=== PATIENT | female | born 1945 | race Caucasian/White ===

== ENCOUNTER 2022-03-27 08:00 | Outpatient (RCR) | payer MEDICARE, BC, OTHER, SELFPAY ==
--- NOTE | 2022-03-04 13:29 | PTOPEVAL ---
PHYSICAL THERAPY EVALUATION AND PLAN OF CARE 03-04-22 Thank you for referring Suzie Vaughan to [facility] for the diagnosis of dizziness. She is scheduled to be seen for therapy? 0-2 x/week for 5 weeks. Please review, sign, date and return this plan of care CHARLINE. I agree with and certify that the following plan of care is medically necessary. Referring Physician Date Attending Provider: Roxana Azul NP Past Medical History Source of Past Medical History Patient Neurological History Hx Neurological Disorders No Significant History Cardiovascular History Hx Cardiac Surgery Yes: cardiac stents Hx Myocardial Infarction Yes Hx Other Cardiac Disorders Yes: monitoring aortic aneurysm; follow with cardiology Respiratory History Hx Pneumonia Yes Hx Sleep Apnea Yes: CPAP Genitourinary History Hx Kidney Stones Yes Musculoskeletal History Hx Back Pain Yes: receive injections for back pain Hx Orthopedic Surgery Yes: hammer toe surgery R; Endocrine History Hx Endocrine Disorders No Significant History HEENT History Hx HEENT Disorders No Significant History Evaluation Information Diagnosis dizziness Onset December 2021 Prior Level of Function Activity Level (Last 3 Months) Occupation retired Home Setting Home Type House,Multiple Levels Comments Additional Prior Level of Function recently moved to the area; Comments decreased activity due to R foot surgery and less walking joined fitness center to do aquatic exercises; have basement, but can only go down there 2-3 times a day due to being so weak; indep with cooking, cleaning, home tasks and driving; Pain Assessment Timing of Pain Assessment Pain Scale Pain Scale Used Numeric (1 - 10) Self Report Pain Assessment Bilateral Back Reported Pain Level 5 Pain Frequency Chronic Other Pain Description chronic back pain Pain Score Pain Score 5: Self Report Interventions Used Interventions Used By Clinicians Education Gait Assessment Gait Assessment Ambulation Assistive Devices None Ambulation Distance 150 Query Text:(Feet) Ambulation Destination In Corridor Ambulation Ability Independent Additional Ambulation Comments no abnormalities noted with walking into the treatment
--- NOTE | 2022-03-20 10:08 | PCPTNOTE ---
Patient called & cancelled scheduled appointment this date due to not being able drive because of increased dizziness & memory loss, even had to have her daughter pick her up from the Dr's appt yesterday
--- NOTE | 2022-03-27 08:36 | PTOPEVAL ---
PHYSICAL THERAPY DISCHARGE REPORT 03-27-22 Refer to the clinical summary below; the goals were achieved, therefore PT will be discharged at this time. Thank you for referring Suzie Vaughan to [facility].? Please review, sign, date and return this Discharge report CHARLINE. I agree with and certify that the following plan of care is medically necessary. Referring Physician Date Attending Provider: Roxana Azul NP Subjective Information Marisol reports: have not had Query Text:As Reported By Patient/ any dizziness for about one Family week; have completed my antibiotics and feeling much better; no problems with mobility; going for an eye exam next week- has been a long time since eyes were checked; am using CPAP every night when sleeping; have not found her hearing aides yet-- is in one of her moving boxes she has not yet opened; doing well, do not need anymore therapy; Pain Assessment Timing of Pain Assessment Timing of Pain Assessment Assessment Self Report Self Report Pain Level 0 Vestibular Testing Smooth Pursuits Normal Saccades WNL Gaze Stabilization with Fixation WNL Mikel-Hallpike Left WNL Mikel-Hallpike Right WNL Vestibular Testing Comments -standing 360' turn to R and L 1x; -burr picker item up off floor - walking 50' with head turns R/L and up/down 4x each - supine/sit/stand transfer All performed without any vestibular s/s or balance issues; education; discussed vertigo and causes: BPPV, infection/ UTI, hearing and vision issues ; reinforced doing vestibular eye tracking PRN for her vestibular symptoms; continue with safety and hold positions when moving, to assure not dizzy and safe to move; increase awareness of any changes and notify dr if she has any symptoms again of dizziness or UTI; Pt voiced understanding of
== END 2022-03-27 14:11 | disposition home or self-care (01) ==
LOC: ANHPT 08:00
PROVIDERS: PCP Family Medicine; Visit Provider Nurse Practitioner Family
DX: R42 Dizziness and giddiness (principal)
CPT/HCPCS: 97112; 97161; 97530

== ENCOUNTER 2022-06-05 12:43 | Emergency (ER) | payer OTHER, SELFPAY ==
[2022-06-05 12:48] VITALS: BP 107/57; PULSE 73; RESP 14; TEMP 36.9; O2SAT 100
--- NOTE | 2022-06-05 13:01 | ED.SKABFB ---
HPI - Skin/Abscess/Foreign Bdy General Chief complaint: Skin/Abscess/Foreign Body Stated complaint: Rash Time Seen by Provider: 06/05/22 13:01 Source: patient Mode of arrival: ambulatory Limitations: no limitations History of Present Illness HPI narrative: 77-year-old female with significant medical history presented with complaint of rash spreading from the left arm to abdomen and the right arm over the last 5 days. Endorses itching, denies pain, fever, nausea or vomiting. She has been applying calamine and Benadryl cream. Denies lip, tongue, throat swelling or itching, difficulty breathing or wheezing. Denies change to lotion, soap, detergent or medications. She works in the yard regularly. Related Data Home Medications Medication Instructions Recorded Confirmed riboflavin (vitamin B2) 100 mg 100 mg PO DAILY 02/28/22 06/05/22 tablet Allergies Allergy/AdvReac Type Severity Reaction Status Date / Time ciprofloxacin [From Cipro] Allergy Unknown Verified 06/05/22 13:02 pregabalin [From Lyrica] Allergy Unknown Verified 06/05/22 13:02 oxycodone AdvReac Severe Vomiting Verified 06/05/22 13:02 Review of Systems Review of Systems: CONSTITUTIONAL: Denies body aches, fever, chills, or sweats. EYES: Denies visual changes, redness, or discharge. ENT: Denies rhinorrhea, congestion CARDIOVASCULAR: Denies chest pain, palpitations, or edema. RESPIRATORY: Denies cough or dyspnea. GASTROINTESTINAL: Denies abdominal pain, nausea, vomiting, or diarrhea. SKIN: reports rash and itching MUSCULOSKELETAL: Denies joint pain, or myalgia. NEUROLOGIC: Denies numbness, tingling, or weakness. [facility] Past Medical History Medical History (HFpEF) heart failure with preserved ejection fraction Anxiety Ascending aortic aneurysm Atrial fibrillation Atrophy of vagina CAD (coronary atherosclerotic disease) Chronic SI joint pain Degeneration of cervicothoracic intervertebral disc Degeneration of lumbar intervertebral disc Depressive disorder GERD (gastroesophageal reflux disease) Gout Heart attack Hyperlipidemia Kidney stones Lumbar facet arthropathy Lymphedema of both lower extremities Menopausal and postmenopausal disorder Mixed hyperlipidemia Moderate mitral regurgitation TEDDY on CPAP Osteoarthritis Osteoporosis PAF (paroxysmal atrial fibrillation) PHT (pulmonary hypertension) Prolonged QT interval Pulmonary nodule Sacral pain Skin cancer Superior mesenteric artery atherosclerosis Urinary incontinence Varicose veins of both lower extremities with complications Surgical History Surgical History History of surgery on right wrist S/P hammer toe correction Family History Family History Mother Diabetes mellitus Hypertension Depression Heart disease Sibling Alcohol abuse Skin cancer Heart disease Cerebrovascular accident Social History Social History Social History: Pt moved from [place] to [place] 2021. Pt is , lives alone. Smoking status: Former smoker Alcohol intake: current Alcohol use details: occasionnally Substance use: never Substance use type: does not use Gender identity (if verbalized by the patient): Female Sexual Orientation (if Verbalized by the Patient): Straight or Heterosexual Agree to blood products: Yes Comments At time of signature, I have reviewed and agree with nursing past medical, surgical, social and family history unless otherwise noted. Please see nursing chart for further information. There is no relevant family history pertinent to the presenting complaint Exam Narrative: GENERAL: Well-appearing EYES: conjunctivae clear, and EOMI. ENT: Mucous membranes moist. Oropharynx without edema, erythema or lesions. CHEST: Cl
== END 2022-06-05 13:11 | disposition home or self-care (01) ==
PROVIDERS: Emergency Provider Nurse Practitioner Family; PCP Nurse Practitioner Family
DX: L25.9 Unspecified contact dermatitis, unspecified cause (principal); L03.114 Cellulitis of left upper limb; Z87.891 Personal history of nicotine dependence; K21.9 Gastro-esophageal reflux disease without esophagitis; M10.9 Gout, unspecified; E78.2 Mixed hyperlipidemia; I25.10 Atherosclerotic heart disease of native coronary artery without angina pectoris; G47.33 Obstructive sleep apnea (adult) (pediatric); I48.0 Paroxysmal atrial fibrillation; Z85.828 Personal history of other malignant neoplasm of skin; I27.20 Pulmonary hypertension, unspecified; I50.9 Heart failure, unspecified
CPT/HCPCS: 99213; G0463

== ENCOUNTER 2022-09-19 08:26 | Outpatient (CLI) | payer OTHER, SELFPAY ==
--- NOTE | 2022-10-22 00:38 | WPDSLEEPSTUD ---
Sleep Study Date of Study: 09/19/22 Ordering Provider: Roxana Azul NP Interpreting Physician: Janet Castaneda DO Sleep Study Type: Split Polysomnogram Height: 1.63 m Weight: 71.668 kg Body Mass Index: 27.1 Neck Circumference (inches): 15 [place]: 7 Reason for Sleep Study Previously diagnosed TEDDY. CPAP machine stopped working in early 2021. Never got new CPAP. Sleep History The patient is a 77-year-old female with hypertension, hyperlipidemia, coronary artery disease, history of myocardial infarction, cardiac stents x2, heart failure, paroxysmal atrial fibrillation, anxiety, depression, GERD, lower extremity lymphedema, osteoporosis, pulmonary hypertension, AAA and previously diagnosed TEDDY that had a sleep study ordered by her primary care to requalify for CPAP. the patient constantly snores loud enough that others complain. She occasionally has trouble sleeping when she has a cold. She occasionally wakes up gasping for air throughout the night. She occasionally has breathing problems at night observed by herself or others. She rarely sweats excessively at night. She rarely has heart palpitations or irregular heartbeats during the night. She occasionally falls asleep during the day but never while driving. He rarely experiences loss of muscle tone when extremely emotional. She occasionally has trouble at school or work due to sleepiness. She denies feeling unable to move while waking up or falling asleep. She constantly experiences vivid dreamlike scenes upon awakening or falling asleep. She denies feeling afraid of going to sleep. She rarely has nightmares. She frequently remembers her dreams. She constantly has thoughts racing through her mind. She occasionally feels sad or depressed. She frequently has anxiety. He rarely has muscular tension. She rarely notices parts of her body jerk. She occasionally kicks during the night. She frequently has crawling and aching feelings in her legs and frequently has leg pain during the night. She frequently grinds her teeth during sleep and frequently awakens with morning jaw pain. She is frequently bothered by pain during the day and occasionally awakened by pain during the night. She frequently wakes up feeling stiff in the morning. She frequently wakes up with sore or achy muscles. She frequently wakes up with pain in the neck, spine or other joints. She goes to bed at 8:30 p.m. on weekdays and at 9:00 p.m. on the weekends. He is able to fall asleep quickly. She wakes up throughout the night to urinate. She wakes up between 2:23 a.m. on both weekdays and weekends. She typically gets 7-8 hours of sleep per night. She will stay in bed for 15-30 minutes after waking up in the morning. She currently lives alone. She does not consume any caffeinated beverages within 2 hours of bedtime. She does not engage in physical exercise before bedtime. She denies reading and watching television before falling asleep. She denies taking naps in the afternoon or the evening. She drinks 1-2 caffeinated beverages per day. She rarely consumes alcohol. She denies tobacco and recreational drug use. [facility] Past Medical History Medical History (HFpEF) heart failure with preserved ejection fraction Anxiety Ascending aortic aneurysm Atrial fibrillation Atrophy of vagina CAD (coronary atherosclerotic disease) Chronic SI joint pain Degeneration of cervicothoracic intervertebral disc Degeneration of lumbar intervertebral disc Depressive disorder GERD (gastroesophageal reflux disease) Gout Heart attack Hyperlipidemia Kidney stones Lumbar facet arthropathy Lymphedema of both lower extremities Menopausal and postmenopausal disorder Mixed hyperlipidemia Moderate mitral regurgitation TEDDY on CPAP Osteoarthritis Osteoporosis PAF (paroxysmal atrial fibrillation) PHT (pulmonary hypertension) Prolonged QT interval Pulmonary nodule Sacral
[2022-10-22 00:52] VITALS: BMI 27.1
== END 2022-09-20 06:29 | disposition home or self-care (01) ==
LOC: ANHCSM 08:29
PROVIDERS: PCP Nurse Practitioner Family; Visit Provider Nurse Practitioner Family
DX: G47.33 Obstructive sleep apnea (adult) (pediatric) (principal); Z87.891 Personal history of nicotine dependence; I48.91 Unspecified atrial fibrillation; I25.10 Atherosclerotic heart disease of native coronary artery without angina pectoris; E78.5 Hyperlipidemia, unspecified; K21.9 Gastro-esophageal reflux disease without esophagitis
CPT/HCPCS: 95811

== ENCOUNTER → 2023-03-26 12:22 | Outpatient (CLI) | payer OTHER, SELFPAY ==
--- NOTE | ~2023-03-26 | XR_ITS ---
Lumbosacral Spine: AP and lateral views Clinical History: Pain Findings: The normal lordotic curve is maintained. No fracture or subluxation identified. There is mo derate degenerative disc narrowing throughout the lumbar spine. There is moderate to advanced facet a rthropathy throughout the lumbar spine. The sacroiliac joints are normally outlined. Impression: Moderate degenerative spondylosis, as above. No fracture or subluxation evident. Reviewed, dictated and finalized at location . Impression: Moderate degenerative spondylosis, as above. No fracture or subluxation evident.
== END ==
PROVIDERS: PCP Nurse Practitioner Family; Visit Provider Nurse Practitioner Family
DX: M47.896 Other spondylosis, lumbar region (principal)
CPT/HCPCS: 72100

== ENCOUNTER 2023-06-02 09:51 | Outpatient (CLI) | payer OTHER, SELFPAY ==
--- NOTE | ~2023-06-02 | XR_ITS ---
EXAMINATION: XR abdomen/kub 1V INDICATION: Bilateral kidney stones TECHNIQUE: Supine views of the abdomen were obtained on 2 radiographs. COMPARISON: 03/26/2023 FINDINGS: There are two stable 8 mm stones of the right kidney. No left-sided urolithiasis is identif ied. There are bilateral tubal ligation clips of the pelvis. A moderate volume of colonic stool is pr esent. The visualized lung bases are clear. Bilateral breast implants are noted. There is mild osteoa rthritis of the hips. IMPRESSION: 1. Right nephrolithiasis. Reviewed, dictated and finalized at location A. IMPRESSION: 1. Right nephrolithiasis.
== END 2023-06-02 09:52 | disposition home or self-care (01) ==
LOC: ANHIMG 09:54
PROVIDERS: PCP Family Medicine; Visit Provider Urology
DX: N20.0 Calculus of kidney (principal)
CPT/HCPCS: 74018

== ENCOUNTER 2023-07-18 10:04 | Emergency (ER) | payer OTHER, SELFPAY ==
--- NOTE | ~2023-07-18 | XR_ITS ---
AP, oblique, and lateral views of the left fourth toe CLINICAL HISTORY: Injury FINDINGS: No fracture or dislocation identified. There are minimal degenerative changes of the interp halangeal joints in the visualized toes. Soft tissues are unremarkable. IMPRESSION: No fracture or dislocation seen. Reviewed, dictated and finalized at [facility].
[2023-07-18 10:11] VITALS: BP 130/82; PULSE 65; RESP 14; TEMP 36.4; O2SAT 96
--- NOTE | 2023-07-18 10:24 | ED.LOWEXIN ---
HPI - Extremity Injury (Lower) General Chief Complaint: Extremity Injury, Lower Stated Complaint: Fall Injury/ To Injury on Left Foot Source: patient and RN notes reviewed History of Present Illness HPI Narrative: 78 yo F presents to urgent care with complaints of left toe pain. Pt states she tripped on something 2 days ago while going down the stairs. pt states something went between her left 4th and 3rd toes, causing her to trip. Pt reports left 4th toe pain and left lateral ankle swelling. States she landed on her buttocks. Denies any head injury, neck pain, LOC, chest pain, SOB, vomiting, numbness, or tingling. Pt has not done anything for her toe pain at home. Related Data Home Medications Medication Instructions Recorded Confirmed apixaban 5 mg tablet (Eliquis) 5 mg PO BID 11/19/22 06/17/23 Aspirin [facility] 06/17/23 06/17/23 Cranberry [facility] 06/17/23 06/17/23 albuterol sulfate 90 mcg/actuation 2 inh inhalation QID 06/17/23 06/17/23 breath activated powder inhaler potassium [facility] 06/17/23 06/17/23 Allergies Allergy/AdvReac Type Severity Reaction Status Date / Time ciprofloxacin [From Cipro] Allergy Unknown Verified 07/18/23 10:08 pregabalin [From Lyrica] Allergy Unknown Verified 07/18/23 10:08 oxycodone AdvReac Severe Vomiting Verified 07/18/23 10:08 Review of Systems Review of Systems: CONSTITUTIONAL: Denies fever, chills, or sweats. EYES: Denies visual changes, redness, or discharge. ENT: Denies otalgia and sore throat CARDIOVASCULAR: Denies chest pain, palpitations, or edema. RESPIRATORY: Denies cough or dyspnea. GASTROINTESTINAL: Denies abdominal pain, nausea, vomiting, or diarrhea. GENITOURINARY: Denies dysuria or hematuria. SKIN: Denies rash or itching. MUSCULOSKELETAL: Left 4th toe pain NEUROLOGIC: Denies headache, numbness, or weakness. Pertinent positives per HPI. [facility] Past Medical History Medical History (HFpEF) heart failure with preserved ejection fraction Anxiety Ascending aortic aneurysm Atrial fibrillation Atrophy of vagina CAD (coronary atherosclerotic disease) Chronic SI joint pain Degeneration of cervicothoracic intervertebral disc Degeneration of lumbar intervertebral disc Depressive disorder GERD (gastroesophageal reflux disease) Gout Heart attack Hyperlipidemia Kidney stones Lumbar facet arthropathy Lymphedema of both lower extremities Menopausal and postmenopausal disorder Mixed hyperlipidemia Moderate mitral regurgitation TEDDY on CPAP Osteoarthritis Osteoporosis PAF (paroxysmal atrial fibrillation) PHT (pulmonary hypertension) Prolonged QT interval Pulmonary nodule Restless leg syndrome Sacral pain Skin cancer Sleep apnea Superior mesenteric artery atherosclerosis Urinary incontinence Varicose veins of both lower extremities with complications Surgical History Surgical History History of surgery on right wrist S/P hammer toe correction Family History Family History (Updated 06/17/23 @ 10:18 by Chely Rader MA) Mother Diabetes mellitus Hypertension Depression Heart disease Sibling Alcohol abuse Skin cancer Heart disease Cerebrovascular accident Asthma Social History Social History Social History: Pt moved from [place] to [place] 2021. Pt is , lives alone. Smoking status: Former smoker Tobacco type: cigarettes Alcohol intake: current Alcohol use details: occasionnally Substance use: never Substance use type: does not use Lack of Transportation: No Lack of Food: Never True Current Housing: I Have Housing Concerned About Future Housing: No Difficulty Paying Gas/Electric Bills: No Difficulty Paying for Meds: No Currently Unemployed: No Education: Trade/Vocational Certificate Difficulty w/ Childcare or Family Care:
--- NOTE | 2023-07-18 10:27 | PC.NURSE ---
PT DECLINED ICE FOR COMFORT
== END 2023-07-18 10:50 | disposition home or self-care (01) ==
PROVIDERS: Emergency Provider Nurse Practitioner Family; PCP Nurse Practitioner Adult Health
DX: S90.122A Contusion of left lesser toe(s) without damage to nail, initial encounter (principal); W19.XXXA Unspecified fall, initial encounter; I48.91 Unspecified atrial fibrillation; K21.9 Gastro-esophageal reflux disease without esophagitis; F41.8 Other specified anxiety disorders; Z87.891 Personal history of nicotine dependence
CPT/HCPCS: 73660; 99213; G0463

== ENCOUNTER 2023-11-11 08:21 | Emergency (ER) | payer OTHER, SELFPAY ==
[2023-11-11 08:33] VITALS: BP 129/81; PULSE 63; RESP 18; TEMP 35.9; O2SAT 100
--- NOTE | 2023-11-11 08:36 | ED.NAVMDI ---
HPI - Nausea/Vomiting/Diarrhea General Chief complaint: Nausea/Vomiting/Diarrhea Stated complaint: Vomiting, Weakness Time Seen by Provider: 11/11/23 08:40 Source: patient and RN notes reviewed Mode of arrival: ambulatory Limitations: no limitations History of Present Illness HPI Narrative: 78-year-old female presents concern for vomiting, diarrhea. She reports generalized weakness. She reports symptoms started when she days ago. She reports mild runny nose, denies sore throat, cough, body aches, chills, sweats. Reports she has not taken her temperature. She reports history of urinary tract infections, however reports she has a device implanted that helps keep her from having urinary frequency,. She denies dysuria, urgency, malodorous urine at this time. Related Data Home Medications Medication Instructions Recorded Confirmed apixaban 5 mg tablet (Eliquis) 5 mg PO BID 11/19/22 09/02/23 [facility] 09/02/23 [facility] 06/17/23 09/02/23 albuterol sulfate 90 mcg/actuation 2 inh inhalation QID 06/17/23 09/02/23 breath activated powder inhaler potassium [facility] 06/17/23 09/02/23 Allergies Allergy/AdvReac Type Severity Reaction Status Date / Time ciprofloxacin [From Cipro] Allergy Unknown Verified 09/02/23 08:15 pregabalin [From Lyrica] Allergy Unknown Verified 09/02/23 08:15 oxycodone AdvReac Severe Vomiting Verified 09/02/23 08:15 Review of Systems Review of Systems: CONSTITUTIONAL: Reports malaise, generalized weakness EYES: Denies visual changes, redness, or discharge. ENT: Reports rhinorrhea. Denies congestion, sinus pain, otalgia and sore throat. CARDIOVASCULAR: Denies chest pain, palpitations, or edema. RESPIRATORY: Reports cough. Denies dyspnea. GASTROINTESTINAL: Denies abdominal pain. Reports nausea, vomiting, diarrhea SKIN: Denies rash or itching. MUSCULOSKELETAL: Denies myalgia. NEUROLOGIC: Denies headache. All systems reviewed & are unremarkable except as noted in HPI and below PMFSH Past Medical History Medical History (Updated 11/11/23 @ 09:01 by Bernadette Townsend NP) (HFpEF) heart failure with preserved ejection fraction Anxiety Ascending aortic aneurysm Atrial fibrillation Atrophy of vagina CAD (coronary atherosclerotic disease) Chronic SI joint pain Degeneration of cervicothoracic intervertebral disc Degeneration of lumbar intervertebral disc Depressive disorder GERD (gastroesophageal reflux disease) Gout Heart attack Hyperlipidemia Kidney stones Lumbar facet arthropathy Lymphedema of both lower extremities Menopausal and postmenopausal disorder Mixed hyperlipidemia Moderate mitral regurgitation TEDDY on CPAP Osteoarthritis Osteoporosis PAF (paroxysmal atrial fibrillation) PHT (pulmonary hypertension) Prolonged QT interval Pulmonary nodule Restless leg syndrome Sacral pain Skin cancer Sleep apnea Superior mesenteric artery atherosclerosis Urinary incontinence Varicose veins of both lower extremities with complications Surgical History Surgical History History of surgery on right wrist S/P hammer toe correction Family History Family History (Updated 06/17/23 @ 10:18 by Chely Rader MA) Mother Diabetes mellitus Hypertension Depression Heart disease Sibling Alcohol abuse Skin cancer Heart disease Cerebrovascular accident Asthma Social History Social History Social History: Pt moved from [place] to [place] 2021. Pt is , lives alone. Smoking status: Former smoker Tobacco type: cigarettes Alcohol intake: current Alcohol use details: occasionnally Substance use: never Substance use type: does not use Lack of Transportation: No Lack of Food: Never True Current Housing: I Have Housing Concerned About Future Housing: No Difficulty Paying Gas/Electric Bills: No Difficulty Paying for Meds
== END 2023-11-11 09:07 | disposition home or self-care (01) ==
PROVIDERS: Emergency Provider Nurse Practitioner; PCP Nurse Practitioner Adult Health
DX: N39.0 Urinary tract infection, site not specified (principal); B96.20 Unspecified Escherichia coli [E. coli] as the cause of diseases classified elsewhere; Z87.891 Personal history of nicotine dependence; K21.9 Gastro-esophageal reflux disease without esophagitis; M10.9 Gout, unspecified; E78.2 Mixed hyperlipidemia; G47.33 Obstructive sleep apnea (adult) (pediatric); M81.0 Age-related osteoporosis without current pathological fracture; I48.0 Paroxysmal atrial fibrillation; G25.81 Restless legs syndrome; Z85.828 Personal history of other malignant neoplasm of skin; I25.10 Atherosclerotic heart disease of native coronary artery without angina pectoris; I25.2 Old myocardial infarction; Z79.01 Long term (current) use of anticoagulants; I11.0 Hypertensive heart disease with heart failure; I50.9 Heart failure, unspecified
CPT/HCPCS: 81003; 87077; 87086; 87186; 99213; G0463

== ENCOUNTER 2023-11-25 06:44 | Outpatient (CLI) | payer OTHER, SELFPAY ==
--- NOTE | ~2023-11-25 | CT_ITS ---
EXAMINATION: CTA abd aorta runoff DATE: 11/25/2023 07:12 INDICATION: Abdominal aortic aneurysm without rupture. TECHNIQUE: Computed tomographic angiography (CTA) of the abdominal, pelvis, and both lower extremitie s was performed with 150 mL Omnipaque-350 intravenous contrast. Automated exposure control and iterat oksana reconstruction technique were employed. The dose-length product was 898.77 mGy-cm. Maximum intens ity projection 3D-reconstructions of the arteries were created by the technologist on a separate work station. COMPARISON: None. FINDINGS: ABDOMINAL AORTA AND ITS BRANCHES: There is calcified atherosclerosis of the aorta and many of the other arteries. There is no signific ant stenosis of celiac axis. There is mild stenosis of superior mesenteric artery. There is no signif icant stenosis of the renal arteries or inferior mesenteric artery. PELVIC VASCULATURE: There is no significant stenosis of the common iliac arteries, external iliac arteries, or internal i liac arteries. RIGHT LOWER EXTREMITY VASCULATURE: There is no significant stenosis of right common femoral artery, profunda femoral artery, superficial femoral artery, popliteal artery, tibioperoneal trunk, peroneal artery, anterior tibial artery, or p osterior tibial artery. There are varices in the calf. LEFT LOWER EXTREMITY VASCULATURE: There is no significant stenosis of left common femoral artery, profunda femoral artery, superficial femoral artery, popliteal artery, tibioperoneal trunk, peroneal artery, anterior tibial artery, or po sterior tibial artery. There are varices in the calf and thigh. ADDITIONAL FINDINGS: The visualized portions of the lung bases demonstrate mild atelectasis. No pleural effusion. Cardiome mona is noted. No pericardial effusion. There is a 5 mm cyst in the liver. The gallbladder, spleen, p ancreas, and adrenal glands are normal. There is a small sliding hiatal hernia. There is cortical thi nning of right kidney. There are cysts in the kidneys measuring up to 2.6 cm on the right. There are 9 mm and 8 mm stones in right kidney. The periuterine veins and left ovarian vein are enlarged, consi stent with pelvic venous insufficiency. There are no dilated loops of bowel. The appendix is normal. There are no pathologically enlarged lymph nodes. There is no free intraperitoneal fluid. There are e lectrodes in right S3 neural foramen. IMPRESSION: 1. No significant arterial occlusive disease. 2. No abdominal aortic aneurysm. Reviewed, dictated and finalized at location A. [employer]
== END 2023-11-25 06:45 | disposition home or self-care (01) ==
PROVIDERS: PCP Nurse Practitioner Adult Health; Visit Provider Internal Medicine Cardiovascular Disease
DX: I71.40 Abdominal aortic aneurysm, without rupture, unspecified (principal)
CPT/HCPCS: 75635; Q9967

== ENCOUNTER 2023-12-09 13:29 | Outpatient (CLI) | payer OTHER, SELFPAY ==
--- NOTE | ~2023-12-09 | XR_ITS ---
EXAMINATION: XR abdomen/kub 1V INDICATION: Bilateral kidney stones TECHNIQUE: Supine views of the abdomen were obtained on 2 radiographs. COMPARISON: 06/02/2023 FINDINGS: There are two stable stones measuring 6 mm in the right kidney. No definite left nephrolith iasis is identified. There are no stones along the expected courses of the ureters. Phleboliths are n oted in the pelvis. The bowel gas pattern is normal. There is moderate osteoarthritis of the hips. A neurostimulator device projects over the right mid abdomen with its lead entering the left pelvis. IMPRESSION: 1. Stable right nephrolithiasis. Reviewed, dictated and finalized at location L. ENTICE PHOTOGRAPHER
== END 2023-12-09 13:30 | disposition home or self-care (01) ==
PROVIDERS: PCP Nurse Practitioner Adult Health; Visit Provider Physician Assistant
DX: N20.0 Calculus of kidney (principal); G89.29 Other chronic pain
CPT/HCPCS: 74018

== ENCOUNTER 2023-12-29 14:35 | Outpatient (CLI) | payer OTHER, SELFPAY ==
--- NOTE | ~2023-12-29 | CT_ITS ---
EXAMINATION: CT abdomen pelvis wo con DATE: 12/29/2023 14:57 INDICATION: Bilateral kidney stones TECHNIQUE: Computed tomography (CT) of the abdomen and pelvis was performed without intravenous contr ast. Automated exposure control and iterative reconstruction technique were employed. Exam dose: 184 .88 mGy-cm total exam DLP. COMPARISON: December 09, 2023 KUB November 25, 2023 CT abdomen aorta runoff FINDINGS: Focal discoid atelectasis or scarring at the base of the lingula and to a greater extent le ft lower lobe. No consolidation at the lung bases. Cardiomegaly. No pericardial or pleural effusion. Small sliding hiatal hernia. Small anterior cyst of the medial segment of the left hepatic lobe. The liver is otherwise unremarkab le. The gallbladder is contracted. No bile duct or pancreatic duct dilatation or pancreatic mass lesi on or calcification. Normal splenic size. Normal morphology of the adrenal glands. Approximately 2.5 cm right renal cyst. Pinpoint nonobstructing lower pole left renal calculus. There are 2 pinpoint nonobstructing mid to upper right renal calculi. 8 mm 9.5 mm nonobstructing lower pole right renal calculi with attenuation of approximately 12 Hounsf ield units. No hydronephrosis. The urinary bladder is unremarkable except for a small amount of intraluminal air. The uterus and adn exal areas are unremarkable. There is atherosclerotic calcification but normal caliber of the abdominal aorta. No intraperitoneal or retroperitoneal or pelvic mass lesion or adenopathy or ascites is noted. No bowel obstruction or intraperitoneal free air. Left S3 electrode, battery pack overlying right gluteal area. No suspicious osteolytic or osteoblastic lesions are noted. Prominent degenerative disc disease and degenerative change at the apophyseal joints in the lower lum bar area. IMPRESSION: Bilateral nephrolithiasis, slight on the left, more prominent on the right No hydroureteronephrosis Approximately 2.5 cm right renal cyst Small sliding hiatal hernia Small hepatic cysts Cardiomegaly Reviewed, dictated and finalized at Location A. Reviewed, dictated and finalized at location B. IMPRESSION: Bilateral nephrolithiasis, slight on the left, more prominent on t he right No hydroureteronephrosis Approximately 2.5 cm right renal cyst Small sliding hiatal hernia Small hepatic cysts Cardiomegaly
--- NOTE | ~2023-12-29 | XR_ITS ---
XR abdomen/kub 1V DATE: 12/29/2023 14:52 INDICATION: Bilateral kidney stones TECHNIQUE: AP view COMPARISON: 12/29/2023 CT abdomen pelvis FINDINGS: 2 prominent lower pole right renal calcified calculi are again noted. A couple of punctate nonobstructing upper pole right renal calculi and pinpoint nonobstructing lower pole left renal calcu morales are better demonstrated on 12/29/2023 CT examination. No visceromegaly is evident. The psoas shadows are intact. There is a prominent of fecal material in the colon but no bowel obstruction is evident. Right sided battery pack with left sacral neurotransmitter lead. IMPRESSION: Nephrolithiasis Reviewed, dictated and finalized at Location A. Reviewed, dictated and finalized at location L. IMPRESSION: Nephrolithiasis
== END 2023-12-29 14:36 | disposition home or self-care (01) ==
LOC: ANHIMG 14:36
PROVIDERS: PCP Nurse Practitioner Adult Health; Visit Provider Physician Assistant
DX: N20.0 Calculus of kidney (principal); I51.7 Cardiomegaly; K44.9 Diaphragmatic hernia without obstruction or gangrene; N28.1 Cyst of kidney, acquired
CPT/HCPCS: 74018; 74176

== ENCOUNTER 2024-04-05 10:53 | Emergency (ER) | payer OTHER, SELFPAY ==
--- NOTE | 2024-04-05 11:07 | ED.GENADULT ---
HPI - General Adult General Chief complaint: Urogenital-Female Stated complaint: Poss UTI Source: patient and RN notes reviewed Mode of arrival: ambulatory Limitations: no limitations History of Present Illness HPI narrative: 79-year-old female history of recurrent UTIs, CAD, CHF, atrial fibrillation, and AAA presented for c/o bladder pressure and increased confusion which she has when she gets a UTI. Onset 5-6 days. Reports possible fever and constipation yesterday. States she often does not know who she is or what day it is, and has had a negative neuro workup. Takes a daily antbiotic for UTI, but is unsure of the name. Follows with Dr Prakash. Has device for 'leaking bladder'. denies hematuria, nausea, vomiting, abdominal pain, flank pain, constipation, diarrhea, fevers or chills. Reports a UTI about 6 weeks ago, for which she was treated by urologist. Related Data Home Medications Medication Instructions Recorded Confirmed apixaban 5 mg tablet (Eliquis) 5 mg PO BID 11/19/22 11/17/23 Aspirin [facility] 06/17/23 11/17/23 Cranberry [facility] 06/17/23 11/17/23 albuterol sulfate 90 mcg/actuation 2 inh inhalation QID 06/17/23 11/17/23 breath activated powder inhaler [facility] 11/17/23 omega 2-ips-ktx-fish oil 1,000 mg 2 cap PO DAILY 11/17/23 11/17/23 (120 mg-180 mg) capsule (Fish Oil) Allergies Allergy/AdvReac Type Severity Reaction Status Date / Time ciprofloxacin [From Cipro] Allergy Unknown Verified 12/01/23 14:17 pregabalin [From Lyrica] Allergy Unknown Verified 12/01/23 14:17 oxycodone AdvReac Severe Vomiting Verified 12/01/23 14:17 Review of Systems Review of Systems: CONSTITUTIONAL: Denies body aches, fever, chills, or sweats. CARDIOVASCULAR: Denies chest pain, palpitations, or edema. RESPIRATORY: Denies cough or dyspnea. GASTROINTESTINAL: Denies abdominal pain, nausea, vomiting, or diarrhea. GENITOURINARY: Reports dysuria, denies frequency, urgency, hematuria, flank pain SKIN: Denies rash, itching, or wounds. MUSCULOSKELETAL: Denies back pain or myalgia. PMFSH Past Medical History Medical History (HFpEF) heart failure with preserved ejection fraction Anxiety Ascending aortic aneurysm Atrial fibrillation Atrophy of vagina CAD (coronary atherosclerotic disease) Chronic SI joint pain Degeneration of cervicothoracic intervertebral disc Degeneration of lumbar intervertebral disc Depressive disorder GERD (gastroesophageal reflux disease) Gout Heart attack Hyperlipidemia Kidney stones Lumbar facet arthropathy Lymphedema of both lower extremities Menopausal and postmenopausal disorder Mixed hyperlipidemia Moderate mitral regurgitation TEDDY on CPAP Osteoarthritis Osteoporosis PAF (paroxysmal atrial fibrillation) PHT (pulmonary hypertension) Prolonged QT interval Pulmonary nodule Restless leg syndrome Sacral pain Skin cancer Sleep apnea Superior mesenteric artery atherosclerosis Urinary incontinence Varicose veins of both lower extremities with complications Surgical History Surgical History History of surgery on right wrist S/P hammer toe correction Family History Family History Mother Diabetes mellitus Hypertension Depression Heart disease Sibling Alcohol abuse Skin cancer Heart disease Cerebrovascular accident Asthma Social History Social History Social History: Pt moved from [place] to [place] 2021. Pt is , lives alone. Smoking status: Former smoker Tobacco type: cigarettes Alcohol intake: current Alcohol use details: occasionnally Substance use: never Substance use type: does not use Do You Feel Safe in your Home?: Yes Lack of Transportation: No Lack of Food: Never True Current Housing: I Have [facility]
[2024-04-05 11:08] VITALS: BP 117/77; PULSE 76; RESP 20; TEMP 36.2; O2SAT 100
== END 2024-04-05 11:41 | disposition home or self-care (01) ==
PROVIDERS: Emergency Provider Nurse Practitioner Family; PCP Nurse Practitioner Adult Health
DX: R30.0 Dysuria (principal); Z87.891 Personal history of nicotine dependence; I25.10 Atherosclerotic heart disease of native coronary artery without angina pectoris; K21.9 Gastro-esophageal reflux disease without esophagitis; M10.9 Gout, unspecified; I25.2 Old myocardial infarction; E78.2 Mixed hyperlipidemia; G47.33 Obstructive sleep apnea (adult) (pediatric); M19.90 Unspecified osteoarthritis, unspecified site; M81.0 Age-related osteoporosis without current pathological fracture; I48.0 Paroxysmal atrial fibrillation; G25.81 Restless legs syndrome; Z85.828 Personal history of other malignant neoplasm of skin; Z79.82 Long term (current) use of aspirin
CPT/HCPCS: 81003; 87086; 87088; 99213; G0463

== ENCOUNTER 2024-06-07 08:06 | Outpatient (CLI) | payer OTHER, SELFPAY ==
[2024-06-07 18:54] LABS: Basophils Absolute Auto 0.1 K/mm3 (0.0-0.1); Basophils Percent Auto 0.7 % (0.2-1.2); Eosinophils Absolute Auto 0.3 K/mm3 (0-0.3); Eosinophils Percent Auto 3.6 % (0-4.4); Hematocrit 44.5 % (37.0-47.0); Hemoglobin 13.7 g/dL (12.0-15.0); Immature Granulocyte Absolute 0.02 K/mm3 (0.00-0.031); Immature Granulocyte Percent A 0.3 % (0-0.5); Lymphocytes Absolute Auto 1.82 K/mm3 (0.9-3.2); Lymphocytes Percent Auto 26.3 % (18.3-44.2); Mean Corpuscular HGB Conc 30.8 g/dl (32-36); Mean Corpuscular Hemoglobin 29.5 pg (26-34); Mean Corpuscular Volume 95.7 fl (80-100); Mean Platelet Volume 10.3 fl (7.4-10.4); Monocytes Absolute Auto 0.7 K/mm3 (0.1-0.6); Monocytes Percent Auto 9.7 % (2.6-8.5); Neutrophils Absolute Auto 4.1 K/mm3 (1.3-6.7); Neutrophils Percent Auto 59.4 % (45.5-73.1); Platelet Count Result 219 k/mm3 (150-375); Red Blood Count 4.65 M/mm3 (4.2-5.4); Red Cell Distribution Width 13.7 % (11.5-14.5); White Blood Count 6.9 K/mm3 (4.5-10.0)
[2024-06-07 19:23] LABS: Alanine Aminotransferase 22 U/L (6-35); Albumin Level 4.5 g/dL (3.5-5.1); Alkaline Phosphatase 71 U/L (38-126); Anion Gap 10 mmol/L (4-12); Aspartate Amino Transferase 56 U/L (14-36); Blood Urea Nitrogen 20 mg/dL (7-17); Calcium 9.6 mg/dL (8.4-10.2); Carbon Dioxide 27 mmol/L (22-30); Chloride 103 mmol/L (98-107); Cholesterol 201 mg/dL (0-200); Estimated Glomerular Filt Rate > 60; Glucose 104 mg/dL (65-110); HDL Direct 43 mg/dL; Sodium 140 mmol/L (137-145); Triglycerides 265 mg/dL (<150)
[2024-06-07 19:34] LABS: LDL Cholesterol Direct 90 mg/dL
== END 2024-06-07 08:07 | disposition home or self-care (01) ==
PROVIDERS: PCP Nurse Practitioner Adult Health; Visit Provider Internal Medicine Cardiovascular Disease
DX: E78.5 Hyperlipidemia, unspecified (principal)
CPT/HCPCS: 36415; 80053; 80061; 84443; 85025

== ENCOUNTER 2024-12-14 07:58 | Outpatient (CLI) | payer MEDICARE, SELFPAY ==
[2024-12-14 18:55] LABS: Alanine Aminotransferase 18 U/L (6-35); Albumin Level 4.3 g/dL (3.5-5.1); Alkaline Phosphatase 61 U/L (38-126); Anion Gap 9 mmol/L (4-12); Aspartate Amino Transferase 50 U/L (14-36); Bilirubin,Total 1.4 mg/dL (0.2-1.3); Blood Urea Nitrogen 17 mg/dL (7-17); Calcium 9.4 mg/dL (8.4-10.2); Carbon Dioxide 26 mmol/L (22-30); Chloride 108 mmol/L (98-107); Cholesterol 199 mg/dL (0-200); Estimated Glomerular Filt Rate > 60; Glucose 92 mg/dL (65-110); HDL Direct 39 mg/dL; Magnesium 2.3 mg/dL (1.6-2.3); Potassium 4.7 mmol/L (3.4-5.0); Sodium 143 mmol/L (137-145); Triglycerides 195 mg/dL (<150)
[2024-12-14 19:06] LABS: LDL Cholesterol Direct 97 mg/dL
[2024-12-14 19:22] LABS: Basophils Absolute Auto 0.1 K/mm3 (0.0-0.1); Basophils Percent Auto 0.9 % (0.2-1.2); Eosinophils Absolute Auto 0.2 K/mm3 (0-0.3); Eosinophils Percent Auto 3.2 % (0-4.4); Hemoglobin 11.9 g/dL (12.0-15.0); Immature Granulocyte Absolute 0.01 K/mm3 (0.00-0.031); Immature Granulocyte Percent A 0.1 % (0-0.5); Lymphocytes Absolute Auto 1.47 K/mm3 (0.9-3.2); Lymphocytes Percent Auto 21.6 % (18.3-44.2); Mean Corpuscular HGB Conc 30.5 g/dl (32-36); Mean Corpuscular Hemoglobin 29.2 pg (26-34); Mean Corpuscular Volume 95.6 fl (80-100); Mean Platelet Volume 10.1 fl (7.4-10.4); Monocytes Absolute Auto 0.7 K/mm3 (0.1-0.6); Monocytes Percent Auto 10.1 % (2.6-8.5); Neutrophils Absolute Auto 4.4 K/mm3 (1.3-6.7); Neutrophils Percent Auto 64.1 % (45.5-73.1); Platelet Count Result 249 k/mm3 (150-375); Red Blood Count 4.08 M/mm3 (4.2-5.4); Red Cell Distribution Width 14.4 % (11.5-14.5); White Blood Count 6.8 K/mm3 (4.5-10.0)
== END 2024-12-14 07:59 | disposition home or self-care (01) ==
LOC: ANHBWCLAB 07:59
PROVIDERS: PCP Nurse Practitioner Adult Health; Visit Provider Nurse Practitioner Adult Health
DX: E78.5 Hyperlipidemia, unspecified (principal); I10 Essential (primary) hypertension
CPT/HCPCS: 36415; 80053; 80061; 83735; 85025

== ENCOUNTER 2025-01-11 07:41 | Outpatient (CLI) | payer MEDICARE, SELFPAY ==
--- OUTSIDE RECORDS SUMMARY | 2025-01-11 07:44 | XMS_ITS | Encounter Summary ---
Author Organization [facility] Address [facility] [place] [address] Care Team Providers Care Automation And Controls Instructor Name Role Phone Barrie Naranjo MD Primary Care Provider [phone] Encounter Details Date Type Department Care Team (Late st Contact Info) Description 09/15/[address] [facility] [id number] Molly Edgar MD [address] [facility] 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 providers found PCP: Barrie Naranjo MD Suzie Vaughan is an 78-year-old female. Reason for Admission: * No active hospital problems. * HPI: History of urge incontinence with successful trial of sacral neuromodulation. Presents for implantation of permanent neurostimulator device Past Medical History: Diagnosis Date AMI (acute myocardial infarction) (CMS/HCC) Arthritis Coronary artery disease Degeneration, intervertebral disc, lumbar GERD (gastroesophageal reflux disease) History of kidney stones TEDDY on CPAP Paroxysmal atrial fibrillation (HHS/HCC) (CMS/HCC) PONV (postoperative nausea and vomiting) RLS (restless legs syndrome) Sensory urge incontinence Skin cancer of face Vertigo Allergies: Allergies Allergen Reactions Ciprofloxacin Vomiting Lyrica [Pregabalin] Vomiting Social History Tobacco Use Smoking status: Former Packs/day: 0.50 Years: 20.00 Additional pack years: 0.00 Total pack years: 10.00 Types: Cigarettes Quit date: 2013 Years since quittin.9 Smokeless tobacco: Never Substance Use Topics Alcohol use: Yes Comment: seldom 1 every 3 mo Past Surgical History: Procedure Laterality Date CARDIAC CATHETERIZATION 2019 11 stents placed FRACTURE SURGERY Right wrist HC IMPLANT BREAST REMOVAL OF FALLOPIAN TUBE REPAIR OF HAMM[place]OE,ONE XA A-FIB ABLATION No family history on file. Travel Exposure: Current Outpatient Medications on File Prior to Visit Medication Sig apixaban (ELIQUIS) 5 MG tablet Take 1 tablet (5 mg total) by mouth 2 (two) times daily. aspirin 81 MG chewable tablet Chew 1 tablet (81 mg total) by mouth daily. Evolocumab (REPATHA SC) Inject 1 mg into the skin once a week. ezetimibe (ZETIA) 10 MG tablet Take 1 tablet (10 mg total) by mouth daily. Multiple Vitamin (MULTIVITAMIN ADULT OR) Take 1 tablet by mouth daily. Potassium 99 MG tablet Take 1 tablet by mouth daily. rosuvastatin (CRESTOR) 40 MG tablet Take 1 tablet (40 mg total) by mouth nightly at bedtime. sertraline (ZOLOFT) 100 MG tablet Take 1.5 tablets (150 mg total) by mouth daily. No current facility-administered medications on file prior to visit. There were no vitals taken for this visit. ROS negative Physical Exam No acute distress Normal breathing Alert and orient x3 Assessment: Urge incontinence Plan: Planned for placement of sacral neurostimulator. Understands risks of bleeding, infection, lack of efficacy, need for revision and battery changes. Agrees to proceed. OMLLY EDGAR MD 09/15/2023 ER APPRENTICE COMBINATION documented in this encounter Plan of Treatment Not on file documented as of this encounter Visit Diagnoses Not on filedocumented in this encounter Care Teams Automation And Controls Instructor Relationship Specialty Start Date End Date Barrie Naranjo MD [address] [place] [address] PCP - General FAMILY PRACTICE 09/11/23 documented as of this encounter
--- OUTSIDE RECORDS SUMMARY | 2025-01-11 07:45 | XMS_ITS | Referral Summary ---
Author Organization [address] lto Address [address] [place] [address] Care Team Providers Care Undergraduate Internship Name Role Phone Barrie Naranjo MD Primary Care Provider [phone] Encounters Date Type Department Care Team Description 12/29/2024 Orders Only [facility] V[facility] Vein Surgery [address] [place] [address] [place] [phone] Renyaldo Whitaker MD 12/29/2024 9:00 AM CDT Office Visit [facility] Vascular at [address] [place] [phone] Erik Whitaker MD Varicose veins of leg with pain, right (Primary Dx) 12/28/2024 Documentation [facility] Vascular and Vein Surgery [address] [place] [address] [place] [phone] Irma Green MA 12/27/2024 Documentation [facility] V[facility] Vein Surgery [address] [place] [address] [place] [phone] Irma Green MA 12/03/2024 6:28 PM [facility]I [facility]IMMER - 12/04/2024 12:13 AM [facility] Emergency [facility] Emergency Department [address] [place] [address] James Harris MD Wala, Rakesh Aggarwal MD Head injury, initial encounter (Primary Dx); Fall, initial encounter Discharge Disposition: Discharge to home or self care 12/03/2024 1:18 PM [facility]I [facility] TRIMMER - 12/03/2024 11:59 PM [facility] Hospital Encounter [facility] Emergency, Room R Discharge Disposition: Discharge to home or self care 12/03/2024 10:53 AM [facility]I [facility] TRIMMER - 12/03/2024 11:59 PM [facility] Hospital Encounter [facility] Medical Office Building 2 Vascular [address] [facility] [address] [place] [address] Varicose veins of leg with pain, right Discharge Disposition: Discharge to home or self care 11/30/2024 Telephone [facility] Ve[facility] Surgery [address] [facility] [address] [place] [address] Kallie Schwab, RN 11/29/2024 Orders Only [facility] at [address] [place] [address] Erik Whitaker MD 11/26/2024 Telephone [facility] [address] [facility] [address] [place] [address] Augustin Alvarez MD 11/26/2024 Telephone [facility] Vascular and Vein Surgery [facility] [facility] [address] [place] [address] Kallie Schwab, RN from Last 3 Months Allergies Active Allergy Reactions Criticality Noted Date Comments Ciprofloxacin Hallucinations Medium 03/08/2022 Pregabalin Hallucinations Medium 03/08/2022 Medications metoprolol hoang-hydrochlorot hiaz 100-12.5 mg tablet extended release 24 hr Take by mouth Ac tive apixaban (ELIQUIS) 2.5 mg tablet 1 tablet (2.5 mg total) Active sertraline (ZOLOFT) 100 mg tablet Take 1 tablet (100 mg total) by mouth daily Active aspirin 81 mg chewable tablet Take 1 tablet (81 mg total) by mouth daily Active omega-3 fatty acids-fish oil 300-1,000 mg capsule Take 2 capsules (2 g total) by mouth daily Active meclizine (ANTIVERT) 25 mg tablet Take 1 tablet (25 mg total) by mouth 3 (three) times a day as needed for dizziness Active trimethoprim (TRIMPEX) 100 mg tablet Take 1 tablet (100 mg total) by mouth nightly 4 Active ALPRAZolam (XANAX) 0.5 mg tablet Bring both tablets to [address] day of procedure. 2 tablet 5 Active Additional Information Patient not taking.Reported on 12/29/2024 Active Problems Problem Noted Date Diagnosed Date Varicose veins of leg with pain, right 5 Assessment & Plan (12/31/2024 7:28 AM CDT): Status post right lower extremity stab phlebectomies, continue p.r.n. compression therapy. Overall I do not think there would be much benefit from performing left lower extremity stab phlebectomies. Can follow up me as needed. Varicose veins of bilateral lower extremities wi th pain 07/07/2024 Assessment & Plan (08/13/2024 10:36 AM CDT): Risks benefits alternatives to stab phlebectomies discussed, risks including bleeding, infection, need for further surgery. She wished proceed. Assessment & Plan (07/07/2024 1:07 PM CDT): Symptomatic bulky varicosities to the bilateral medial legs. Continue compression therapy and follow up in the next few weeks with a venous reflux. Social History Tobacco Use Types Packs/Day Years Used Date Smoking Tobacco: Former Cigarettes Q uit: 2013 Smokeless Tobacco: Never Tobacco Cessation:Counseling Given: Not Answered Personal Safety Answer Date Recorded Have you ever been in or are you currently in a harmful physical or emotional relationship or is someone making you feel afraid or unsafe? Denies 03/03/2023 Comments No Sex and Gender Information Value Date Recorded Sex Assigned at Not on file Legal Sex Female 4:25 PM CDT Gender Identity Not on file Sexual Orientation Not on file Last Filed Vital Signs Vital Sign Reading Time Taken Comments Blood Pressure 147/81 12/29/2024 9:21 AM CDT Pulse 68 12/29/2024 9:21 AM CDT Temperature 36.3 C (97.4 F) 12/03/2024 11:40 PM SKI [facility] TRIMMER Respiratory Rate 14 12/03/2024 11:45 PM [facility]I [facility] TRIMMER Oxygen Saturation 97% 12/29/2024 9:21 AM CDT Inhaled Oxygen Concentration - - Weight 70.3 kg (155 lb) 12/29/2024 9:21 AM CDT Height 162.6 cm (5' 4 ) 12/29/2024 9:21 AM CDT Body Mass Index 26.61 12/29/2024 9:21 AM CDT Plan of Treatment Not on file Procedures Procedure Name Priority Date/Time Associated Diagnosis Comments XR HAND RIGHT 3 OR MORE VIEWS ED 12/03/2024 8:[address] LUMBAR SPINE WO CONTRAST ED 12/03/2024 7:[address] FACIAL BONES WO CONTRAST ED 12/03/2024 7:[address] CERVICAL SPINE WO CONTRAST ED 12/03/2024 7:[address] HEAD WO CONTRAST ED 12/03/2024 7 :42 PM SKI TOP TRIMMER EGFR STAT 12/03/2024 6:57 PM [facility]I [facility] TRIMMER DIFFERENTIAL AUTO STAT 12/03/2024 6:5 7 PM [facility]I [facility] TR[facility]MER CBC WITH AUTO DIFFERENTIAL STAT 12/03/2024 6:57 PM [facility]I [facility] TR[facility]MER COMPREHENSIVE METABOLIC PANEL STAT 12/03/2024 6:57 PM SKI TOP TRIMMER ECG 12-LEAD STAT 12/03/2024 6:33 PM SKI TOP TRIMMER from Last 3 Months Results * XR Hand Right 3 or More Views (12/03/2024 8:10 PM SKI TOP TRIMMER) Anatomical Region Laterality Modality Upper Extremities, Hand Right Computed Radiography 12/03/2024 8:28 PM SKI TOP TRIMMER Narrative 12/03/2024 8:29 PM SKI TOP TRIMMER EXAM DESCRIPTION: XR HAND RIGHT 3 OR MORE VIEWS REASON FOR STUDY: pain Pt had a varicose vein surgery today and slipped and fell walking into her house. Pt laid on the ground outside for approximately two hours before she was found and EMS was called. Pt has large amounts of bruising and bleeding to the L side of her face. All over Right Hand Pain. TECHNIQUE: 3 radiographic view(s) of the right hand . COMPARISON: None FINDINGS: BONES/JOINTS: There is no acute fracture, malalignment or osseous abnormality. Severe osteoarthritis of the right hand. SOFT TISSUES: Within normal limits. IMPRESSION: No acute osseous abnormality. THIS IS AN ELECTRONICALLY VERIFIED FINAL REPORT 12/03/2024 8:29 PM - Electronically signed by Elsy Gilliam M.D. FT: FT Report ID: [id number] Reading Location: [id number] Procedure Note Elsy Gagnon MD - 12/03/2024 EXAM DESCRIPTION: XR HAND RIGHT 3 OR MORE VIEWS REASON FOR STUDY: pain Pt had a varicose vein surgery today and slipped and fell walking into her house. Pt laid on the ground outside for approximately two hours beforeshe was found and EMS was called. Pt has large amounts of bruising andbleeding to the L side of her face. All over Right Hand Pain. TECHNIQUE: 3 radiographic view(s) of the right hand . COMPARISON: None FINDINGS: BONES/JOINTS: There is no acute fracture, malalignment or osseousabnormality. Severe osteoarthritis of the right hand. SOFT TISSUES: Within normal limits. IMPRESSION: No acute osseous abnormality. THIS IS AN ELECTRONICALLY VERIFIED FINAL REPORT 12/03/2024 8:29 PM - Electronically signed by Elsy Gilliam M.D. FT: FT Report ID: [id number] Reading Location: [id number] James Harris MD IMG XR PROCEDURES Final Resu lt * CT Lumbar Spine WO Contrast (12/03/2024 7:42 PM SKI TOP TRIMMER) Anatomical Region Laterality Modality Spine N/A Computed Tomogra phy 12/03/2024 7:55 PM SKI TOP TRIMMER Narrative 12/03/2024 7:59 PM SKI TOP TRIMMER EXAM DESCRIPTION: CT LUMBAR SPINE WO CONTRAST REASON FOR STUDY: Low back pain, trauma Patient fell after coming home from varicose vein procedure on leg. Patient struck face. Patient in c-collar. TECHNIQUE: Axial images acquired through the lumbar spine without intravenous contrast. Reconstructed coronal and sagittal MPR images reviewed. All images stored on PACS. Automated exposure control was used as a dose optimization technique for this examination. COMPARISON: None FINDINGS: SEGMENTATION: No transitional anatomy. The lowest well-developed disc space is labeled L5-S1. ALIGNMENT: Normal. VERTEBRAE: No fracture. Vertebral heights well-maintained. DISC HEIGHT: Moderate disc space narrowing at L4-5. There is vacuum disc phenomenon at L4-5 and L5-S1. Marginal osteophytes are seen throughout the lumbar spine and there is degenerative change involving the articular facets. The bones are osteopenic. HARDWARE: None in the spine. INDIVIDUAL DISC LEVELS: At L2-3 through L5-S1, there are minimal diffusely bulging disc resulting in only mild narrowing of the central canal. VISUALIZED RIBS: No fractures. SOFT TISSUES: Nonobstructing stones and cortical scarring in the visualized right kidney. Small hiatal hernia. Atherosclerotic calcification of the abdominal aorta. OTHER: No other significant finding. IMPRESSION: Multilevel degenerative change in the lumbar spine. No CT evidence of lumbar spine fracture. THIS IS AN ELECTRONICALLY VERIFIED FINAL REPORT 12/03/2024 7:59 PM - Electronically signed by Juaquin Dorantes M.D. KT: KT Report ID: [id number] Reading Location: [id number] Procedure Note Juaquin Dorantes MD - 12/03/2024 EXAM DESCRIPTION: CT LUMBAR SPINE WO CONTRAST REASON FOR STUDY: Low back pain, trauma Patient fell after coming home from varicose vein procedure on leg.Patient struck face. Patient in c-collar. TECHNIQUE: Axial images acquired through the lumbar spine withoutintravenous contrast. Reconstructed coronal and sagittal MPR images reviewed. Allimages stored on PACS. Automated exposure control was used as a dose optimization technique forthis examination. COMPARISON: None FINDINGS: SEGMENTATION: No transitional anatomy. The lowest well-developed discspace is labeled L5-S1. ALIGNMENT: Normal. VERTEBRAE: No fracture. Vertebral heights well-maintained. DISC HEIGHT: Moderate disc space narrowing at L4-5. There is vacuumdisc phenomenon at L4-5 and L5-S1. Marginal osteophytes are seen throughoutthe lumbar spine and there is degenerative change involving the articularfacets. The bones are osteopenic. HARDWARE: None in the spine. INDIVIDUAL DISC LEVELS: At L2-3 through L5-S1, there are minimaldiffusely bulging disc resulting in only mild narrowing of the central canal. VISUALIZED RIBS: No fractures. SOFT TISSUES: Nonobstructing stones and cortical scarring in thevisualized right kidney. Small hiatal hernia. Atherosclerotic calcification of the abdominal aorta. OTHER: No other significant finding. IMPRESSION: Multilevel degenerative change in the lumbar spine. No CT evidence oflumbar spine fracture. THIS IS AN ELECTRONICALLY VERIFIED FINAL REPORT 12/03/2024 7:59 PM - Electronically signed by Juaquin Dorantes M.D. KT: KT Report ID: [id number] Reading Location: [place] [id number] James Harris MD IMG CT PROCEDURES Final Resu lt * CT Cervical Spine WO Contrast (12/03/2024 7:42 PM SKI TOP TRIMMER) Anatomical Region Laterality Modality Spine N/A Computed Tomogra phy 12/03/2024 7:53 PM SKI TOP TRIMMER Narrative 12/03/2024 8:15 PM SKI TOP TRIMMER EXAM DESCRIPTION: CT HEAD WO CONTRAST; CT CERVICAL SPINE WO CONTRAST; CT FACIAL BONES WO CONTRAST REASON FOR STUDY: Head trauma, moderate-severe Patient fell after coming home from varicose vein procedure on leg. Patient struck face. Patient in c-collar. ; Neck trauma (Age >= 65y) Patient fell after coming home from varicose vein procedure on leg. Patient struck face. Patient in c-collar. ; Facial trauma, blunt Patient fell after coming home from varicose vein procedure on leg. Patient struck face. Patient in c-collar. TECHNIQUE: Axial images acquired through the brain without intravenous contrast. Images stored on PACS. Automated exposure control was used as a dose optimization technique for this examination. Axial images acquired through the cervical spine without intravenous contrast. Images stored on PACS. Automated exposure control was used as a dose optimization technique for this examination. Axial images acquired through the maxillofacial bones without intravenous contrast. Images stored on PACS. Automated exposure control was used as a dose optimization technique for this examination. COMPARISON: None available FINDINGS: Head: BRAIN: No hemorrhage, edema or mass effect. No recent infarct. Nonspecific periventricular and subcortical white matter hypoattenuation which can be seen as sequela of chronic vessel ischemic disease. There is age-appropriate cerebral and cerebellar volume loss with ex vacuo dilatation of the ventricular system. No acute intraventricular hemorrhage. Basal cisterns are patent. No midline shift. EXTRA-AXIAL SPACES: No fluid collections. No masses. CALVARIUM: No fracture. SINUSES/MASTOIDS: Mucosal thickening of the entire paranasal sinuses due to chronic sinusitis. There is opacification of few right mastoid air cells. ORBITS: No significant abnormality. OTHER: There are left frontal scalp/left forehead, left preseptal as well as left Radha maxillary facial subcutaneous contusions and hematomas with the largest discrete hematoma in the left supraorbital region measures up to 2 cm with an adjacent locule of soft tissue gas likely due to laceration. Cervical spine: There is mild dextrocurvature of the cervical spine, 2 mm anterolisthesis of C4 on C5, 1 mm retrolisthesis of C5 on C6 and C6 on C7. The cervical spine alignment is otherwise within normal limits. Vertebral body heights are normal. There is no acute fracture. Multilevel cervical spine degenerative disc disease which is most pronounced and severe at C5-C6 and C6-C7. Ydtk-jf-bnaldplo multilevel facet and uncovertebral joint osteoarthritis with swul-ul-qrtpmlnm multilevel osseous neural foraminal stenosis. No acute osseous abnormality in the imaged upper thoracic spine. No aggressive bone lesions. Mild osteopenia. Neck soft tissues demonstrate no acute abnormality. No cervical mass or cervical lymphadenopathy. Lung apices demonstrate biapical pleuroparenchymal scarring. Maxillofacial bones: No acute fractures or aggressive bone lesions. Mucosal thickening of the entire paranasal sinuses due to chronic sinusitis. There is occlusion of the left ostiomeatal unit. Right ostiomeatal unit is patent. There is opacification of few right mastoid air cells. Left mastoid air cells are clear. The IAC's are normal and symmetric. The orbits and globes are unremarkable. The maxilla is edentulous with several absent mandibular teeth with associated chronic alveolar ridge resorption. 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 The nasal septum is deviated to the right. The nasal turbinates are within normal limits. There are left frontal scalp/left forehead, left preseptal as well as left Radha maxillary facial subcutaneous contusions and hematomas with the largest discrete hematoma in the left supraorbital region measures up to 2 cm with an adjacent locule of soft tissue gas likely due to laceration. IMPRESSION: 1. No acute intracranial findings. 2. No CT evidence of acute traumatic injury to cervical spine. 3. No acute maxillofacial fractures. 4. Lleft frontal scalp/left forehead, left preseptal as well as left Radha maxillary facial subcutaneous contusions and hematomas with the largest discrete hematoma in the left supraorbital region measures up to 2 cm with an adjacent locule of soft tissue gas likely due to laceration. THIS IS AN ELECTRONICALLY VERIFIED FINAL REPORT 12/03/2024 8:15 PM - Electronically signed by Antonio Sandy M.D. AT: AT Report ID: [id number] Reading Location: [id number] Procedure Note Antonio Sandy MD - 12/03/2024 EXAM DESCRIPTION: CT HEAD WO CONTRAST; CT CERVICAL SPINE WO CONTRAST; CT FACIAL BONES WO CONTRAST REASON FOR STUDY: Head trauma, moderate-severe Patient fell after coming home from varicose vein procedure on leg.Patient struck face. Patient in c-collar. ; Neck trauma (Age >= 65y) Patient fell after coming home from varicose vein procedure on leg.Patient struck face. Patient in c-collar. ; Facial trauma, blunt Patient fell after coming home from varicose vein procedure on leg.Patient struck face. Patient in c-collar. TECHNIQUE: Axial images acquired through the brain without intravenous contrast. Images stored on PACS. Automated exposure control was used asa dose optimization technique for this examination. Axial images acquired through the cervical spine without intravenouscontrast. Images stored on PACS. Automated exposure control was used as a dose optimization technique for this examination. Axial images acquired through the maxillofacial bones without intravenous contrast. Images stored on PACS. Automated exposure control was used as a dose optimization technique for this examination. COMPARISON: None available FINDINGS: Head: BRAIN: No hemorrhage, edema or mass effect. No recent infarct.Nonspecific periventricular and subcortical white matter hypoattenuation which can beseen as sequela of chronic vessel ischemic disease. There is age-appropriate cerebral and cerebellar volume loss with ex vacuo dilatation of the ventricular system. No acute intraventricular hemorrhage. Basal cisternsare patent. No midline shift. EXTRA-AXIAL SPACES: No fluid collections. No masses. CALVARIUM: No fracture. SINUSES/MASTOIDS: Mucosal thickening of the entire paranasal sinuses dueto chronic sinusitis. There is opacification of few right mastoid air cells. ORBITS: No significant abnormality. OTHER: There are left frontal scalp/left forehead, left preseptal aswell as left Radha maxillary facial subcutaneous contusions and hematomas with the largest discrete hematoma in the left supraorbital region measures up to 2cm with an adjacent locule of soft tissue gas likely due to laceration. Cervical spine: There is mild dextrocurvature of the cervical spine, 2 mm anterolisthesisof C4 on C5, 1 mm retrolisthesis of C5 on C6 and C6 on C7. The cervicalspine alignment is otherwise within normal limits. Vertebral body heights are normal. There is no acute fracture. Multilevel cervical spinedegenerative disc disease which is most pronounced and severe at C5-C6 and C6-C7. Zenl-qy-ukitbzti multilevel facet and uncovertebral joint osteoarthritiswith jfzy-vk-dorlqofz multilevel osseous neural foraminal stenosis. No acute osseous abnormality in the imaged upper thoracic spine. No aggressive bone lesions. Mild osteopenia. Neck soft tissues demonstrate no acute abnormality. No cervical mass or cervical lymphadenopathy. Lung apices demonstrate biapicalpleuroparenchymal scarring. Maxillofacial bones: No acute fractures or aggressive bone lesions. Mucosal thickening of the entire paranasal sinuses due to chronicsinusitis. There is occlusion of the left ostiomeatal unit. Right ostiomeatal unitis patent. There is opacification of few right mastoid air cells. Left mastoid aircells are clear. The IAC's are normal and symmetric. The orbits and globes are unremarkable. The maxilla is edentulous with several absent mandibular teeth withassociated chronic alveolar ridge resorption. 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 The nasal septum is deviated to the right. The nasal turbinates arewithin normal limits. There are left frontal scalp/left forehead, left preseptal as well as left Radha maxillary facial subcutaneous contusions and hematomas with thelargest discrete hematoma in the left supraorbital region measures up to 2 cm withan adjacent locule of soft tissue gas likely due to laceration. IMPRESSION: 1. No acute intracranial findings. 2. No CT evidence of acute traumatic injury to cervical spine. 3. No acute maxillofacial fractures. 4. Lleft frontal scalp/left forehead, left preseptal as well as left Radha maxillary facial subcutaneous contusions and hematomas with the largest discrete hematoma in the left supraorbital region measures up to 2 cm withan adjacent locule of soft tissue gas likely due to laceration. THIS IS AN ELECTRONICALLY VERIFIED FINAL REPORT 12/03/2024 8:15 PM - Electronically signed by Antonio Sandy M.D. AT: AT Report ID: [id number] Reading Location: [id number] James Harris MD IMG CT PROCEDURES Final Resu lt * CT Facial Bones WO Contrast (12/03/2024 7:42 PM SKI TOP TRIMMER) Anatomical Region Laterality Modality Head and Neck N/A Computed Tomogra phy 12/03/2024 7:53 PM SKI TOP TRIMMER Narrative 12/03/2024 8:15 PM SKI TOP TRIMMER EXAM DESCRIPTION: CT HEAD WO CONTRAST; CT CERVICAL SPINE WO CONTRAST; CT FACIAL BONES WO CONTRAST REASON FOR STUDY: Head trauma, moderate-severe Patient fell after coming home from varicose vein procedure on leg. Patient struck face. Patient in c-collar. ; Neck trauma (Age >= 65y) Patient fell after coming home from varicose vein procedure on leg. Patient struck face. Patient in c-collar. ; Facial trauma, blunt Patient fell after coming home from varicose vein procedure on leg. Patient struck face. Patient in c-collar. TECHNIQUE: Axial images acquired through the brain without intravenous contrast. Images stored on PACS. Automated exposure control was used as a dose optimization technique for this examination. Axial images acquired through the cervical spine without intravenous contrast. Images stored on PACS. Automated exposure control was used as a dose optimization technique for this examination. Axial images acquired through the maxillofacial bones without intravenous contrast. Images stored on PACS. Automated exposure control was used as a dose optimization technique for this examination. COMPARISON: None available FINDINGS: Head: BRAIN: No hemorrhage, edema or mass effect. No recent infarct. Nonspecific periventricular and subcortical white matter hypoattenuation which can be seen as sequela of chronic vessel ischemic disease. There is age-appropriate cerebral and cerebellar volume loss with ex vacuo dilatation of the ventricular system. No acute intraventricular hemorrhage. Basal cisterns are patent. No midline shift. EXTRA-AXIAL SPACES: No fluid collections. No masses. CALVARIUM: No fracture. SINUSES/MASTOIDS: Mucosal thickening of the entire paranasal sinuses due to chronic sinusitis. There is opacification of few right mastoid air cells. ORBITS: No significant abnormality. OTHER: There are left frontal scalp/left forehead, left preseptal as well as left Radha maxillary facial subcutaneous contusions and hematomas with the largest discrete hematoma in the left supraorbital region measures up to 2 cm with an adjacent locule of soft tissue gas likely due to laceration. Cervical spine: There is mild dextrocurvature of the cervical spine, 2 mm anterolisthesis of C4 on C5, 1 mm retrolisthesis of C5 on C6 and C6 on C7. The cervical spine alignment is otherwise within normal limits. Vertebral body heights are normal. There is no acute fracture. Multilevel cervical spine degenerative disc disease which is most pronounced and severe at C5-C6 and C6-C7. Ykeq-ud-trjobplq multilevel facet and uncovertebral joint osteoarthritis with haoz-ix-nmsejszz multilevel osseous neural foraminal stenosis. No acute osseous abnormality in the imaged upper thoracic spine. No aggressive bone lesions. Mild osteopenia. Neck soft tissues demonstrate no acute abnormality. No cervical mass or cervical lymphadenopathy. Lung apices demonstrate biapical pleuroparenchymal scarring. Maxillofacial bones: No acute fractures or aggressive bone lesions. Mucosal thickening of the entire paranasal sinuses due to chronic sinusitis. There is occlusion of the left ostiomeatal unit. Right ostiomeatal unit is patent. There is opacification of few right mastoid air cells. Left mastoid air cells are clear. The IAC's are normal and symmetric. The orbits and globes are unremarkable. The maxilla is edentulous with several absent mandibular teeth with associated chronic alveolar ridge resorption. 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 The nasal septum is deviated to the right. The nasal turbinates are within normal limits. There are left frontal scalp/left forehead, left preseptal as well as left Radha maxillary facial subcutaneous contusions and hematomas with the largest discrete hematoma in the left supraorbital region measures up to 2 cm with an adjacent locule of soft tissue gas likely due to laceration. IMPRESSION: 1. No acute intracranial findings. 2. No CT evidence of acute traumatic injury to cervical spine. 3. No acute maxillofacial fractures. 4. Lleft frontal scalp/left forehead, left preseptal as well as left Radha maxillary facial subcutaneous contusions and hematomas with the largest discrete hematoma in the left supraorbital region measures up to 2 cm with an adjacent locule of soft tissue gas likely due to laceration. THIS IS AN ELECTRONICALLY VERIFIED FINAL REPORT 12/03/2024 8:15 PM - Electronically signed by Antonio Sandy M.D. AT: AT Report ID: [id number] Reading Location: [id number] Procedure Note Antonio Sandy MD - 12/03/2024 EXAM DESCRIPTION: CT HEAD WO CONTRAST; CT CERVICAL SPINE WO CONTRAST; CT FACIAL BONES WO CONTRAST REASON FOR STUDY: Head trauma, moderate-severe Patient fell after coming home from varicose vein procedure on leg.Patient struck face. Patient in c-collar. ; Neck trauma (Age >= 65y) Patient fell after coming home from varicose vein procedure on leg.Patient struck face. Patient in c-collar. ; Facial trauma, blunt Patient fell after coming home from varicose vein procedure on leg.Patient struck face. Patient in c-collar. TECHNIQUE: Axial images acquired through the brain without intravenous contrast. Images stored on PACS. Automated exposure control was used asa dose optimization technique for this examination. Axial images acquired through the cervical spine without intravenouscontrast. Images stored on PACS. Automated exposure control was used as a dose optimization technique for this examination. Axial images acquired through the maxillofacial bones without intravenous contrast. Images stored on PACS. Automated exposure control was used as a dose optimization technique for this examination. COMPARISON: None available FINDINGS: Head: BRAIN: No hemorrhage, edema or mass effect. No recent infarct.Nonspecific periventricular and subcortical white matter hypoattenuation which can beseen as sequela of chronic vessel ischemic disease. There is age-appropriate cerebral and cerebellar volume loss with ex vacuo dilatation of the ventricular system. No acute intraventricular hemorrhage. Basal cisternsare patent. No midline shift. EXTRA-AXIAL SPACES: No fluid collections. No masses. CALVARIUM: No fracture. SINUSES/MASTOIDS: Mucosal thickening of the entire paranasal sinuses dueto chronic sinusitis. There is opacification of few right mastoid air cells. ORBITS: No significant abnormality. OTHER: There are left frontal scalp/left forehead, left preseptal aswell as left Radha maxillary facial subcutaneous contusions and hematomas with the largest discrete hematoma in the left supraorbital region measures up to 2cm with an adjacent locule of soft tissue gas likely due to laceration. Cervical spine: There is mild dextrocurvature of the cervical spine, 2 mm anterolisthesisof C4 on C5, 1 mm retrolisthesis of C5 on C6 and C6 on C7. The cervicalspine alignment is otherwise within normal limits. Vertebral body heights are normal. There is no acute fracture. Multilevel cervical spinedegenerative disc disease which is most pronounced and severe at C5-C6 and C6-C7. Xjfi-by-oqhiemun multilevel facet and uncovertebral joint osteoarthritiswith udrs-hq-edyhkaap multilevel osseous neural foraminal stenosis. No acute osseous abnormality in the imaged upper thoracic spine. No aggressive bone lesions. Mild osteopenia. Neck soft tissues demonstrate no acute abnormality. No cervical mass or cervical lymphadenopathy. Lung apices demonstrate biapicalpleuroparenchymal scarring. Maxillofacial bones: No acute fractures or aggressive bone lesions. Mucosal thickening of the entire paranasal sinuses due to chronicsinusitis. There is occlusion of the left ostiomeatal unit. Right ostiomeatal unitis patent. There is opacification of few right mastoid air cells. Left mastoid aircells are clear. The IAC's are normal and symmetric. The orbits and globes are unremarkable. The maxilla is edentulous with several absent mandibular teeth withassociated chronic alveolar ridge resorption. 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 The nasal septum is deviated to the right. The nasal turbinates arewithin normal limits. There are left frontal scalp/left forehead, left preseptal as well as left Radha maxillary facial subcutaneous contusions and hematomas with thelargest discrete hematoma in the left supraorbital region measures up to 2 cm withan adjacent locule of soft tissue gas likely due to laceration. IMPRESSION: 1. No acute intracranial findings. 2. No CT evidence of acute traumatic injury to cervical spine. 3. No acute maxillofacial fractures. 4. Lleft frontal scalp/left forehead, left preseptal as well as left Radha maxillary facial subcutaneous contusions and hematomas with the largest discrete hematoma in the left supraorbital region measures up to 2 cm withan adjacent locule of soft tissue gas likely due to laceration. THIS IS AN ELECTRONICALLY VERIFIED FINAL REPORT 12/03/2024 8:15 PM - Electronically signed by Antonio Sandy M.D. AT: AT Report ID: [id number] Reading Location: [id number] James Harris MD IMG CT PROCEDURES Final Resu lt * CT Head WO Contrast (12/03/2024 7:42 PM SKI TOP TRIMMER) Anatomical Region Laterality Modality Head and Neck N/A Computed Tomogra phy 12/03/2024 7:53 PM SKI TOP TRIMMER Narrative 12/03/2024 8:15 PM SKI TOP TRIMMER EXAM DESCRIPTION: CT HEAD WO CONTRAST; CT CERVICAL SPINE WO CONTRAST; CT FACIAL BONES WO CONTRAST REASON FOR STUDY: Head trauma, moderate-severe Patient fell after coming home from varicose vein procedure on leg. Patient struck face. Patient in c-collar. ; Neck trauma (Age >= 65y) Patient fell after coming home from varicose vein procedure on leg. Patient struck face. Patient in c-collar. ; Facial trauma, blunt Patient fell after coming home from varicose vein procedure on leg. Patient struck face. Patient in c-collar. TECHNIQUE: Axial images acquired through the brain without intravenous contrast. Images stored on PACS. Automated exposure control was used as a dose optimization technique for this examination. Axial images acquired through the cervical spine without intravenous contrast. Images stored on PACS. Automated exposure control was used as a dose optimization technique for this examination. Axial images acquired through the maxillofacial bones without intravenous contrast. Images stored on PACS. Automated exposure control was used as a dose optimization technique for this examination. COMPARISON: None available FINDINGS: Head: BRAIN: No hemorrhage, edema or mass effect. No recent infarct. Nonspecific periventricular and subcortical white matter hypoattenuation which can be seen as sequela of chronic vessel ischemic disease. There is age-appropriate cerebral and cerebellar volume loss with ex vacuo dilatation of the ventricular system. No acute intraventricular hemorrhage. Basal cisterns are patent. No midline shift. EXTRA-AXIAL SPACES: No fluid collections. No masses. CALVARIUM: No fracture. SINUSES/MASTOIDS: Mucosal thickening of the entire paranasal sinuses due to chronic sinusitis. There is opacification of few right mastoid air cells. ORBITS: No significant abnormality. OTHER: There are left frontal scalp/left forehead, left preseptal as well as left Rahda maxillary facial subcutaneous contusions and hematomas with the largest discrete hematoma in the left supraorbital region measures up to 2 cm with an adjacent locule of soft tissue gas likely due to laceration. Cervical spine: There is mild dextrocurvature of the cervical spine, 2 mm anterolisthesis of C4 on C5, 1 mm retrolisthesis of C5 on C6 and C6 on C7. The cervical spine alignment is otherwise within normal limits. Vertebral body heights are normal. There is no acute fracture. Multilevel cervical spine degenerative disc disease which is most pronounced and severe at C5-C6 and C6-C7. Cjun-xm-nobbmukz multilevel facet and uncovertebral joint osteoarthritis with ynez-oj-duxkhcjx multilevel osseous neural foraminal stenosis. No acute osseous abnormality in the imaged upper thoracic spine. No aggressive bone lesions. Mild osteopenia. Neck soft tissues demonstrate no acute abnormality. No cervical mass or cervical lymphadenopathy. Lung apices demonstrate biapical pleuroparenchymal scarring. Maxillofacial bones: No acute fractures or aggressive bone lesions. Mucosal thickening of the entire paranasal sinuses due to chronic sinusitis. There is occlusion of the left ostiomeatal unit. Right ostiomeatal unit is patent. There is opacification of few right mastoid air cells. Left mastoid air cells are clear. The IAC's are normal and symmetric. The orbits and globes are unremarkable. The maxilla is edentulous with several absent mandibular teeth with associated chronic alveolar ridge resorption. 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 The nasal septum is deviated to the right. The nasal turbinates are within normal limits. There are left frontal scalp/left forehead, left preseptal as well as left Radha maxillary facial subcutaneous contusions and hematomas with the largest discrete hematoma in the left supraorbital region measures up to 2 cm with an adjacent locule of soft tissue gas likely due to laceration. IMPRESSION: 1. No acute intracranial findings. 2. No CT evidence of acute traumatic injury to cervical spine. 3. No acute maxillofacial fractures. 4. Lleft frontal scalp/left forehead, left preseptal as well as left Radha maxillary facial subcutaneous contusions and hematomas with the largest discrete hematoma in the left supraorbital region measures up to 2 cm with an adjacent locule of soft tissue gas likely due to laceration. THIS IS AN ELECTRONICALLY VERIFIED FINAL REPORT 12/03/2024 8:15 PM - Electronically signed by Antonio Sandy M.D. AT: AT Report ID: [id number] Reading Location: [id number] Procedure Note Antonio Sandy MD - 12/03/2024 EXAM DESCRIPTION: CT HEAD WO CONTRAST; CT CERVICAL SPINE WO CONTRAST; CT FACIAL BONES WO CONTRAST REASON FOR STUDY: Head trauma, moderate-severe Patient fell after coming home from varicose vein procedure on leg.Patient struck face. Patient in c-collar. ; Neck trauma (Age >= 65y) Patient fell after coming home from varicose vein procedure on leg.Patient struck face. Patient in c-collar. ; Facial trauma, blunt Patient fell after coming home from varicose vein procedure on leg.Patient struck face. Patient in c-collar. TECHNIQUE: Axial images acquired through the brain without intravenous contrast. Images stored on PACS. Automated exposure control was used asa dose optimization technique for this examination. Axial images acquired through the cervical spine without intravenouscontrast. Images stored on PACS. Automated exposure control was used as a dose optimization technique for this examination. Axial images acquired through the maxillofacial bones without intravenous contrast. Images stored on PACS. Automated exposure control was used as a dose optimization technique for this examination. COMPARISON: None available FINDINGS: Head: BRAIN: No hemorrhage, edema or mass effect. No recent infarct.Nonspecific periventricular and subcortical white matter hypoattenuation which can beseen as sequela of chronic vessel ischemic disease. There is age-appropriate cerebral and cerebellar volume loss with ex vacuo dilatation of the ventricular system. No acute intraventricular hemorrhage. Basal cisternsare patent. No midline shift. EXTRA-AXIAL SPACES: No fluid collections. No masses. CALVARIUM: No fracture. SINUSES/MASTOIDS: Mucosal thickening of the entire paranasal sinuses dueto chronic sinusitis. There is opacification of few right mastoid air cells. ORBITS: No significant abnormality. OTHER: There are left frontal scalp/left forehead, left preseptal aswell as left Radha maxillary facial subcutaneous contusions and hematomas with the largest discrete hematoma in the left supraorbital region measures up to 2cm with an adjacent locule of soft tissue gas likely due to laceration. Cervical spine: There is mild dextrocurvature of the cervical spine, 2 mm anterolisthesisof C4 on C5, 1 mm retrolisthesis of C5 on C6 and C6 on C7. The cervicalspine alignment is otherwise within normal limits. Vertebral body heights are normal. There is no acute fracture. Multilevel cervical spinedegenerative disc disease which is most pronounced and severe at C5-C6 and C6-C7. Bpch-do-wjditwxj multilevel facet and uncovertebral joint osteoarthritiswith uqky-nj-xjimjcrb multilevel osseous neural foraminal stenosis. No acute osseous abnormality in the imaged upper thoracic spine. No aggressive bone lesions. Mild osteopenia. Neck soft tissues demonstrate no acute abnormality. No cervical mass or cervical lymphadenopathy. Lung apices demonstrate biapicalpleuroparenchymal scarring. Maxillofacial bones: No acute fractures or aggressive bone lesions. Mucosal thickening of the entire paranasal sinuses due to chronicsinusitis. There is occlusion of the left ostiomeatal unit. Right ostiomeatal unitis patent. There is opacification of few right mastoid air cells. Left mastoid aircells are clear. The IAC's are normal and symmetric. The orbits and globes are unremarkable. The maxilla is edentulous with several absent mandibular teeth withassociated chronic alveolar ridge resorption. 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 The nasal septum is deviated to the right. The nasal turbinates arewithin normal limits. There are left frontal scalp/left forehead, left preseptal as well as left Radha maxillary facial subcutaneous contusions and hematomas with thelargest discrete hematoma in the left supraorbital region measures up to 2 cm withan adjacent locule of soft tissue gas likely due to laceration. IMPRESSION: 1. No acute intracranial findings. 2. No CT evidence of acute traumatic injury to cervical spine. 3. No acute maxillofacial fractures. 4. Lleft frontal scalp/left forehead, left preseptal as well as left Radha maxillary facial subcutaneous contusions and hematomas with the largest discrete hematoma in the left supraorbital region measures up to 2 cm withan adjacent locule of soft tissue gas likely due to laceration. THIS IS AN ELECTRONICALLY VERIFIED FINAL REPORT 12/03/2024 8:15 PM - Electronically signed by Antonio Sandy M.D. AT: AT Report ID: [id number] Reading Location: [place] [id number] James Harris MD IMG CT PROCEDURES Final Resu lt * eGFR (12/03/2024 6:57 PM SKI TOP TRIMMER) eGFR 90 >=60 mL/min/1. 73 m2 Comment: Interpretive Data Reference Interval Normal >/= 90 mL/min/1.73m2 Mildly decreased* 60 - 89 mL/min/1.73m2 Mildly to moderately decreased 45 - 59 mL/min/1.73m2 Moderately to severely decreased 30 - 44 mL/min/1.73m2 Severely decreased 15 - 29 mL/min/1.73m2 Kidney Failure < 15 mL/min/1.73m2 *Relative to young adult level Estimated glomerular filtration rate is determined by the 2020 CKD-EPI equation recommended by the National [employer] (A Unifying Approach to GFR Estimation: Recommendations of the NKF-ASK Task Force on Reassessing the Inclusion of Race in Diagnosing Kidney Disease, JASN 2020). The CKD-EPI equation should not be used for patients with unstable renal function and has not been validated in children and those over 70. Current interpretive data was last reviewed 2021. Blood 12/03/2024 6:57 PM SKI TOP TRIMMER 12/03/2024 7:02 PM SKI TOP TRIMMER us James Harris MD LAB BLOOD ORDERABLES Final R esult [facility] ([place]) 1 [facility] Department [place] [address] * (ABNORMAL) Differential, auto (12/03/2024 6:57 PM SKI TOP TRIMMER) Neutrophil abs 10.0(H) 1.5 - 6.5 K/cumm Imm gran abs 0.0 0.0 - 0.1 K/cumm [facility] ([place]) Lymphocyte abs 1.8 0.8 - 3.3 K/cumm [facility] ([place]) Monocyte abs 0.8 0.2 - 0.8 K/cumm [facility] ([place]) Eosinophil abs 0.2 0.0 - 0.5 K/cumm [facility] ([place]) Basophil abs 0.1 0.0 - 0.1 K/cumm [facility] ([place]) Neutrophil pct 77.7 % [facility] ([place]) Comment: Interpretive Data Percent cell count reference ranges are not reported, since discordance with absolute values may lead to misinterpretation of CBC data. Current Interpretive Data was last revised on 2018. Imm gran pct 0.3 % [facility] ([place]) Comment: Interpretive Data Percent cell count reference ranges are not reported, since discordance with absolute values may lead to misinterpretation of CBC data. Current Interpretive Data was last revised on 2018. Lymphocyte pct 13.9 % [facility] ([place]) Comment: Interpretive Data Percent cell count reference ranges are not reported, since discordance with absolute values may lead to misinterpretation of CBC data. Current Interpretive Data was last revised on 2018. Monocyte pct 6.4 % [facility] ([place]) Comment: Interpretive Data Percent cell count reference ranges are not reported, since discordance with absolute values may lead to misinterpretation of CBC data. Current Interpretive Data was last revised on 2018. Eosinophil pct 1.3 % [facility] ([place]) Comment: Interpretive Data Percent cell count reference ranges are not reported, since discordance with absolute values may lead to misinterpretation of CBC data. Current Interpretive Data was last revised on 2018. Basophil pct 0.4 % [facility] ([place]) Comment: Interpretive Data Percent cell count reference ranges are not reported, since discordance with absolute values may lead to misinterpretation of CBC data. Current Interpretive Data was last revised on 2018. Blood 12/03/2024 6:57 PM SKI TOP TRIMMER 12/03/2024 7:02 PM SKI TOP TRIMMER James Harris MD LAB BLOOD ORDERABLES Final R esult [facility] ([place]) [facility] Department [place] [address] * (ABNORMAL) CBC with auto differential (12/03/2024 6:57 PM SKI TOP TRIMMER) WBC 12.9(H) 3.8 - 9.9 K/cumm Hgb 13.2 11.9 - 15.5 g/dL [facility] ([place]) Hct 40.2 35.6 - 45.5 % [facility] ([place]) Plt 254 150 - 400 K/cumm [facility] ([place]) MPV 10.6 9.1 - 12.3 fL [facility] ([place]) RBC 4.49 3.90 - 5.20 M/cumm [facility] ([place]) MCV 89.5 81.3 - 96.4 fL [facility] ([place]) MCH 29.4 27.1 - 33.3 pg [facility] ([place]) MCHC 32.8 32.3 - 35.7 g/dL [facility] ([place]) RDW CV 13.0 11.1 - 14.9 % [facility] ([place]) RDW SD 42.8 35.7 - 48.1 fL [facility] ([place]) NRBC abs 0.00 0.00 - 0.01 K/cumm [facility] ([place] Blood 12/03/2024 6:57 PM SKI TOP TRIMMER 12/03/2024 7:02 PM SKI TOP TRIMMER us James Harris MD LAB BLOOD ORDERABLES Final R esult [facility] ([place] Department [place] [address] * Comprehensive metabolic panel (12/03/2024 6:57 PM SKI TOP TRIMMER) Sodium 137 135 - 145 mmol/L Potassium, pl 4.3 3.3 - 4.9 mmol/L [facility] ([place] Comment:Slightly Hemolyzed S pecimen. Results may be affected. Chloride 101 97 - 110 mmol/L [facility] ([place]) CO2 25 22 - 32 mmol/L [facility] ([place]) Anion gap 11 2 - 15 mmol/L [facility] ([place]) BUN 20 6 - 25 mg/dL [facility] ([place]) Creatinine 0.66 0.60 - 1.10 mg/dL [facility] ([place]) Glucose 108 70 - 199 mg/dL [facility] ([place]) Comment: Interpretive Data Fasting glucose >/= 126 mg/dl is diagnostic for diabetes. Fasting is defined as no caloric intake for at least 8 hours. Fasting glucose between 100 mg/dl to 125 mg/dl is diagnostic of prediabetes. In a patient with classic symptoms of hyperglycemia or hyperglycemic crisis, a random glucose >/= 200 mg/dl is diagnostic for diabetes. In the absence of unequivocal hyperglycemia, results should be confirmed by repeat testing. The classification and Diagnosis of Diabetes Diabetes Care 2021; 46: S19-S40. Current interpretive data was last revised 2022. Calcium 9.5 8.5 - 10.3 mg/dL [facility] ([place]) Bilirubin, total 1.1 0.1 - 1.2 mg/dL [facility] ([place]) Protein, pl 7.6 6.5 - 8.5 g/dL [facility] ([place]) Albumin 4.2 3.5 - 5.0 g/dL [facility] ([place]) Alk phos 60 40 - 130 Units/L [facility] ([place]) ALT 16 7 - 45 Units/L [facility] ([place]) Comment:Hemolysis present. R esults may be affected. AST 29 10 - 45 Units/L [facility] ([place]) Comment: Hemolysis present. Results may be affected. Slightly Hemolyzed Specimen Blood 12/03/2024 6:57 PM SKI TOP TRIMMER 12/03/2024 7:02 PM SKI TOP TRIMMER James Harris MD LAB BLOOD ORDERABLES Final R esult [facility] ([place]) 1 [facility] Department [place] [address] * ECG 12 lead (12/03/2024 6:33 PM SKI TOP TRIMMER) 12/03/2024 6:33 PM SKI TOP TRIMMER Narrative [facility] - 12/04/2024 8:24 AM SKI TOP TRIMMER Vent Rate: 52 bpm RR Interval: 1142 msec NC Interval: 197 msec QRS Duration: 107 msec QT Interval: 454 msec QTC Interval: 434 msec P-R-T [place]: 36 - -45 - 36 degrees IMPRESSION: SINUS BRADYCARDIA INCOMPLETE RIGHT BUNDLE BRANCH BLOCK [90+ ms QRS DURATION, TERMINAL R IN V1/V2, 40+ ms S IN I/aVL/V4/V5/V6] LEFT ANTERIOR FASCICULAR BLOCK [QRS AXIS <= -45, QR IN I, RS IN II] VOLTAGE CRITERIA FOR LVH [MEETS CRITERIA IN ONE OF: R(aVL), S(V1), R(V5), R(V5/V6)+S(V1)] POSSIBLE SEPTAL MYOCARDIAL INFARCTION , PROBABLY OLD [30 ms Q WAVE IN V1/V2] ABNORMAL ECG NO CHANGE FROM PREVIOUS TRACING NOTED Electronically Signed By: Sharif Ferrell MD James Harris MD ECG ORDERABLES Final Result [facility] from Last 3 Months Insurance [facility] MEDICARE ADVANTAGE [facility] Care Teams Undergraduate Internship Relationship Specialty Start Date End Date Barrie Naranjo MD PCP - General Family Practice 08/03/24
--- OUTSIDE RECORDS SUMMARY | 2025-01-11 07:45 | XMS_ITS | Clinical Summary ---
Author Organization [address] lto Address [address] [place] [address] Care Team Providers Care Brick Pitcher Name Role Phone Barrie Naranjo MD Primary Care Provider [phone] Allergies Active Allergy Reactions Criticality Noted Date [...] next few weeks with a venous reflux. Encounters Date Type Department Care Team Description 12/29/2024 9:00 AM CDT Office Visit [facility] Vascular at [address] [place] [address] Erik Whitaker MD Varicose veins of leg with pain, right (Primary Dx) 12/29/2024 Orders Only [facility] V[facility] and Vein Surgery [address] [place] [phone] Reynaldo Whitaker MD 12/28/2024 Documentation [facility] Ve[facility] Surgery [address] [place] [phone] Irma Green MA 12/27/2024 Documentation [facility] Vascular and Vein Surgery [address] [place] [phone] Irma Green MA 12/03/2024 6:28 PM SENIOR PLANNING MANAGER - 12/04/2024 12:13 AM [facility] Emergency [facility] Emergency Department [address] [place] [address] James Harris MD Wala, Rakesh Aggarwal MD Head injury, initial encounter (Primary Dx); Fall, initial encounter Discharge Disposition: Discharge to home or self care 12/03/2024 1:18 PM SENIOR PLANNING MANAGER - 12/03/2024 11:59 PM SENIOR PLANNING MANAGER Hospital Encounter [facility] Emergency, Room R Discharge Disposition: Discharge to home or self care 12/03/2024 10:53 AM SENIOR PLANNING MANAGER - 12/03/2024 11:59 PM SENIOR PLANNING MANAGER Hospital Encounter [facility] Medical Office Building 2 Vascular [address] [facility] [address] [place] [address] Varicose veins of leg with pain, right Discharge Disposition: Discharge to home or self care 11/30/2024 Telephone [facility] Vascular and Vein Surgery [address] [facility] [address] [facility] [address] [place] [address] Kallie Schwab, RN 11/29/2024 Orders Only [facility] Vascular at [place] [address] [place] [address] Erik Whitaker MD 11/26/2024 Telephone [facility] Cardiology [address] [place] [address] Augustin Alvarez MD 11/26/2024 Telephone [facility] Vascular and Vein Surgery [address] [facility] [address] [place] [address] Kallie Schwab, RN from Last 3 Months Surgical History Surgery Date Site/Laterality Comments CARDIAC SURGERY Medical History Medical History Date Comments Heart disease Social History Tobacco Use Types Packs/Day Years [...] on file Sexual Orientation Not on file Obstetrics History Last Filed Vital Signs Vital Sign Reading Time Taken Comments Blood Pressure 147/81 12/29/2024 9:21 AM CDT Pulse 68 12/29/2024 9:21 AM CDT Temperature 36.3 C (97.4 F) 12/03/2024 11:40 PM SENIOR PLANNING MANAGER Respiratory Rate 14 12/03/2024 11:45 PM SENIOR PLANNING MANAGER Oxygen Saturation 97% 12/29/2024 9:21 AM CDT Inhaled Oxygen Concentration - - Weight 70.3 kg (155 lb) 12/29/2024 9:21 AM CDT Height 162.6 cm (5' 4 ) 12/29/2024 9:21 AM CDT Body Mass Index 26.61 12/29/2024 9:21 AM CDT Plan of Treatment Health Maintenance Due Date Last Done Comments Depression Screening 1945 Fall Risk Assessment 1945 Hepatitis C Screening 1945 Osteoporosis Screening-Bone Density Scan 1945 DTaP/Tdap/Td Vaccine (1 - Tdap) 1958 Hepatitis B Screening 1965 Pneumococcal vaccine 65+ (1 of 1 - PCV) 1997 Zoster Vaccine (1 of 2) 1997 Well Visit 65+ 02/14/2012 Covid-19 Vaccine (2 - season) 06/13/202408/2022 Influenza Vaccine (#1) 2024 Procedures Procedure Name Priority Date/Time Associated Diagnosis Comments XR HAND RIGHT 3 OR MORE VIEWS ED 12/03/2024 8:[address] LUMBAR SPINE WO CONTRAST ED 12/03/2024 7:[address] FACIAL BONES WO CONTRAST ED 12/03/2024 7:[address] CERVICAL SPINE WO CONTRAST ED 12/03/2024 7:42 [address] CT HEAD WO CONTRAST ED 12/03/2024 7 :42 PM SENIOR PLANNING MANAGER EGFR STAT 12/03/2024 6:57 PM SENIOR PLANNING MANAGER DIFFERENTIAL AUTO STAT 12/03/2024 6:5 7 PM SENIOR PLANNING MANAGER CBC WITH AUTO DIFFERENTIAL STAT 12/03/2024 6:57 PM SENIOR PLANNING MANAGER COMPREHENSIVE METABOLIC PANEL STAT 12/03/2024 6:57 PM SENIOR PLANNING MANAGER ECG 12-LEAD STAT 12/03/2024 6:33 PM SENIOR PLANNING MANAGER from Last 3 Months Results * XR Hand Right 3 or More Views (12/03/2024 8:10 PM SENIOR PLANNING MANAGER) Anatomical Region Laterality Modality Upper Extremities, Hand Right Computed Radiography 12/03/2024 8:28 PM SENIOR PLANNING MANAGER Narrative 12/03/2024 8:29 PM SENIOR PLANNING MANAGER EXAM DESCRIPTION: XR HAND RIGHT 3 OR [...] Elsy Gilliam M.D. FT: FT Report ID: [id number] Reading Location: [id number] Procedure Note Elsy Gagnon MD - 12/03/2024 [...] Elsy Gilliam M.D. FT: FT Report ID: [id number] Reading Location: [place] [address] James Harris MD IMG XR PROCEDURES Final Resu lt * CT Lumbar Spine WO Contrast (12/03/2024 7:42 PM SENIOR PLANNING MANAGER) Anatomical Region Laterality Modality Spine N/A Computed Tomogra phy 12/03/2024 7:55 PM SENIOR PLANNING MANAGER Narrative 12/03/2024 7:59 PM SENIOR PLANNING MANAGER EXAM DESCRIPTION: CT LUMBAR SPINE WO CONTRAST [...] 12/03/2024 7:59 PM - Electronically signed by Juauqin Dorantes M.D. KT: CLAUDETTE Report ID: [id number] Reading Location: [id number] Procedure Note Juaquin Dorantes MD - 12/03/2024 [...] Electronically signed by Juaquin Dorantes M.D. KT: CLAUDETTE Report ID: [id number] Reading Location: [id number] James Harris MD IMG CT PROCEDURES Final Resu lt * CT Cervical Spine WO Contrast (12/03/2024 7:42 PM SENIOR PLANNING MANAGER) Anatomical Region Laterality Modality Spine N/A Computed Tomogra phy 12/03/2024 7:53 PM SENIOR PLANNING MANAGER Narrative 12/03/2024 8:15 PM SENIOR PLANNING MANAGER EXAM DESCRIPTION: CT HEAD WO CONTRAST; CT [...] pronounced and severe at C5-C6 and C6-C7. Jyjr-qv-gvgyllub multilevel facet and uncovertebral joint osteoarthritis with tbma-bi-nhuaejex multilevel osseous neural foraminal stenosis. No acute [...] Antonio Sandy M.D. AT: AT Report ID: [id number] Reading Location: [place] [address] Procedure Note Antonio Sandy MD - 12/03/2024 [...] pronounced and severe at C5-C6 and C6-C7. Ekvo-rt-ranzreea multilevel facet and uncovertebral joint osteoarthritiswith udeh-mw-inratfst multilevel osseous neural foraminal stenosis. No acute [...] Antonio Sandy M.D. AT: AT Report ID: [id number] Reading Location: [id number] us James Harris MD IMG CT PROCEDURES Final Resu lt * CT Facial Bones WO Contrast (12/03/2024 7:42 PM SENIOR PLANNING MANAGER) Anatomical Region Laterality Modality Head and Neck N/A Computed Tomogra phy 12/03/2024 7:53 PM SENIOR PLANNING MANAGER Narrative 12/03/2024 8:15 PM SENIOR PLANNING MANAGER EXAM DESCRIPTION: CT HEAD WO CONTRAST; CT [...] pronounced and severe at C5-C6 and C6-C7. Zqxq-tv-cjtifbxk multilevel facet and uncovertebral joint osteoarthritis with tdna-ee-rpvukhvd multilevel osseous neural foraminal stenosis. No acute [...] Antonio Sandy M.D. AT: AT Report ID: [id number] Reading Location: [id number] Procedure Note Antonio Sandy MD - 12/03/2024 [...] pronounced and severe at C5-C6 and C6-C7. Qpxn-gg-qvsrjanb multilevel facet and uncovertebral joint osteoarthritiswith dqlv-md-xnbwlqwq multilevel osseous neural foraminal stenosis. No acute [...] Antonio Sandy M.D. AT: AT Report ID: [id number] Reading Location: [id number] us James Harris MD IMG CT PROCEDURES Final Resu lt * CT Head WO Contrast (12/03/2024 7:42 PM SENIOR PLANNING MANAGER) Anatomical Region Laterality Modality Head and Neck N/A Computed Tomogra phy 12/03/2024 7:53 PM SENIOR PLANNING MANAGER Narrative 12/03/2024 8:15 PM SENIOR PLANNING MANAGER EXAM DESCRIPTION: CT HEAD WO CONTRAST; CT [...] pronounced and severe at C5-C6 and C6-C7. Rngc-gv-muxxxnyz multilevel facet and uncovertebral joint osteoarthritis with srqh-tu-vtiwdwiq multilevel osseous neural foraminal stenosis. No acute [...] Antonio Sandy M.D. AT: AT Report ID: [id number] Reading Location: [id number] Procedure Note Antonio Sandy MD - 12/03/2024 [...] pronounced and severe at C5-C6 and C6-C7. Azgh-ve-ayhzvsso multilevel facet and uncovertebral joint osteoarthritiswith jdtg-jl-uzyempot multilevel osseous neural foraminal stenosis. No acute [...] Antonio Sandy M.D. AT: AT Report ID: [id number] Reading Location: [id number] us James E. Harris MD IMG CT PROCEDURES Final Resu lt * eGFR (12/03/2024 6:57 PM SENIOR PLANNING MANAGER) eGFR 90 >=60 mL/min/1. 73 m2 Comment: [...] last reviewed 2021. Blood 12/03/2024 6:57 PM SENIOR PLANNING MANAGER 12/03/2024 7:02 PM SENIOR PLANNING MANAGER James Harris MD LAB BLOOD ORDERABLES Final R esult [facility] [address] [facility] Department [place] [address] * (ABNORMAL) Differential, auto (12/03/2024 6:57 PM SENIOR PLANNING MANAGER) Neutrophil abs 10.0(H) 1.5 - 6.5 K/cumm [...] revised on 2018. Monocyte pct 6.4 % [facility] ([place]) Comment: Interpretive Data Percent cell [...] revised on 2018. Blood 12/03/2024 6:57 PM SENIOR PLANNING MANAGER 12/03/2024 7:02 PM SENIOR PLANNING MANAGER us James Harris MD LAB BLOOD ORDERABLES Final R esult [facility] ([place]) [address] [facility] Department [place] [address] * (ABNORMAL) CBC with auto differential (12/03/2024 6:57 PM SENIOR PLANNING MANAGER) WBC 12.9(H) 3.8 - 9.9 K/cumm Hgb [...] RDW SD 42.8 35.7 - 48.1 fL [facility] NRBC abs 0.00 0.00 - 0.01 K/cumm [facility] ([place] Blood 12/03/2024 6:57 PM SENIOR PLANNING MANAGER 12/03/2024 7:02 PM SENIOR PLANNING MANAGER James Harris MD LAB BLOOD ORDERABLES Final R esult [facility] ([place]) [address] [facility] Department of Laboratories [place] [id number] * Comprehensive metabolic panel (12/03/2024 6:57 PM SENIOR PLANNING MANAGER) Pathologist [facility] Sodium 137 135 - 145 mmol/L Potassium, pl 4.3 3.3 - 4.9 mmol/L [facility] ([place]) Comment:Slightly Hemolyzed S pecimen. Results may be affected. Chloride 101 97 - 110 mmol/L [facility] ([place]) CO2 25 22 - 32 mmol/L [facility] ([place]) Anion gap 11 2 - 15 mmol/L [facility] ([place]) BUN 20 6 - 25 mg/dL [facility] ([place]) Creatinine 0.66 0.60 - 1.10 mg/dL [facility] ([place]) Glucose 108 70 - 199 mg/dL [facility] ([place]) Comment: Interpretive Data Fasting glucose [...] Bilirubin, total 1.1 0.1 - 1.2 mg/dL [facility] ([place]) Protein, pl 7.6 6.5 - 8.5 g/dL [facility] ([place]) Albumin 4.2 3.5 - 5.0 g/dL [facility] ([place]) Alk phos 60 40 - 130 Units/L [facility] ([place]) ALT 16 7 - 45 Units/L [facility] ([place]) Comment:Hemolysis present. R esults may be affected. AST 29 10 - 45 Units/L [facility] ([place]) Comment: Hemolysis present. Results may be affected. Slightly Hemolyzed Specimen Blood 12/03/2024 6:57 PM SENIOR PLANNING MANAGER 12/03/2024 7:02 PM SENIOR PLANNING MANAGER James Harris MD LAB BLOOD ORDERABLES Final R esult [facility] ([place]) [address] [facility] Department of Laboratories [place], [place] [id number] * ECG 12 lead (12/03/2024 6:33 PM SENIOR PLANNING MANAGER) 12/03/2024 6:33 PM SENIOR PLANNING MANAGER Narrative [facility] - 12/04/2024 8:24 AM SENIOR PLANNING MANAGER Vent Rate: 52 bpm RR Interval: 1142 msec IN Interval: 197 msec QRS Duration: 107 msec QT Interval: 454 msec QTC Interval: 434 msec P-R-T [place]: 36 - -45 - 36 degrees IMPRESSION: [...] James Harris MD ECG ORDERABLES Final Result [facility] from Last 3 Months Insurance [facility] MEDICARE [employer]VANT[facility] MEDICARE Address: [address] [address] [place] [address] [facility] Care Teams Brick Pitcher Relationship Specialty Start Date End Date Barrie Naranjo MD PCP - General Family Practice 08/03/24
--- OUTSIDE RECORDS SUMMARY | 2025-01-11 07:45 | XMS_ITS | Clinical Summary ---
Author Organization [facility] Address [address] [place] [address] Care Team Providers Care Pizzamaker Name Role Phone Barrie Naranjo MD Primary Care Provider [phone] Allergies Active Allergy Reactions Criticality Noted Date Comments Ciprofloxacin Vomiting,Hallucinations Medium 2 Pregabalin Vomiting,Hallucinations Medium 03/08/2022 Medications aspirin 81 MG chewable tablet Chew 1 tablet (81 mg total) by mouth daily. Active Evolocumab (REPATHA SC) Inject 1 mg into the skin once a week. Active Multiple Vitamin (MULTIVITAMIN ADULT OR) Take 1 tablet by mouth daily. Active Potassium 99 MG tablet Take 1 tablet by mouth daily. Active apixaban (ELIQUIS) 5 MG tablet Take 1 tablet (5 mg total) by mouth 2 (two) times daily. Active ezetimibe (ZETIA) 10 MG tablet Take 1 tablet (10 mg total) by mouth daily. Active sertraline (ZOLOFT) 100 MG tablet Take 1.5 tablets (150 mg total) by mouth daily. Active traMADol (ULTRAM) 50 MG tabletIndicatio ns:Acute Pain < 3 Day Supply,Acute Pain < 7 Day Supply Take 1 tablet (50 mg total) by mouth every 6 (six) hours as needed for Pain. Indications: Acute Pain < 3 Day Supply, Acute Pain < 7 Day Supply 15 tablet 09/18/2023 Active metoprolol succinate ER (TOPROL-XL) 25 MG 24 hr tablet Take 1 tablet (25 mg total) by mouth daily. 06/17/2023 Active alendronate (FOSAMAX) 70 MG tablet Take 1 tablet (70 mg total) by mouth once a week. 11/11/2022 Active meclizine (ANTIVERT) 25 MG tablet Take 1 tablet (25 mg total) by mouth 3 (three) times daily as needed. 03/05/2023 Active Social History Tobacco Use Types Packs/Day Years Used Date Smoking Tobacco: Former Cigarettes 0.5 20 1 994 - 2013 Smokeless Tobacco: Never Tobacco Cessation:Counseling Given: Not Answered Alcohol Use Standard Drinks/Week Comments Yes 0 (1 standard drink = 0.6 oz pur e alcohol) seldom 1 every 3 mo Comments No Sex and Gender Information Value Date Recorded Sex Assigned at Not on file Legal Sex Female 1:29 PM CUSTOMER SALES SPECIALIST Gender Identity Not on file Sexual Orientation Not on file Last Filed Vital Signs Vital Sign Reading Time Taken Comments Blood Pressure 145/60 09/18/2023 12:45 PM CUSTOMER SALES SPECIALIST Pulse 65 09/18/2023 12:45 PM CUSTOMER SALES SPECIALIST Temperature 36.5 C (97.7 F) 09/18/2023 12:45 PM CUSTOMER SALES SPECIALIST Respiratory Rate 16 09/18/2023 12:45 PM CUSTOMER SALES SPECIALIST Oxygen Saturation 98% 09/18/2023 12:45 PM CUSTOMER SALES SPECIALIST Inhaled Oxygen Concentration - - Weight 67.6 kg (149 lb 0.5 oz) 09/18/2023 8:45 A M CUSTOMER SALES SPECIALIST Height 162.6 cm (5' 4 ) 09/18/2023 8:45 AM CUSTOMER SALES SPECIALIST Body Mass Index 25.58 09/18/2023 8:45 AM CUSTOMER SALES SPECIALIST Plan of Treatment Health Maintenance Due Date Last Done Comments Hepatitis C 1965 DTaP, Tdap and Td Vaccines ( 1 - Tdap) 1966 Zoster Vaccines (1 of 2) 1997 Annual Medicare Wellness Visit 02/14/2012 Dexa Scan (General) 02/14/2012 Pneumococcal Vaccine: 65+ Ye ars (1 of 1 - PCV) 02/14/2012 RSV Immunization or 60+ Years (1 - 1-dose 75+ series) 2022 COVID-19 Vaccine (2 - 2023-2 5 season) 2024 04/22/2022 Meningococcal B Vaccine Aged Out No l onger eligible based on patient's age to complete this topic Meningococcal Vaccine Aged Out No jasmyn ariadne eligible based on patient's age to complete this topic RSV Immunizations Under 20 Months Aged Out No longer eligible based on patient's age to complete this topic Medical Devices Implanted Type [employer] Device Identifier Shelf Expiration Date Model / Serial / Lot Lead Scarum Implanted:Qty : 1 on 09/18/2023 by Arjun Prakash MD at [facility] Lead Implant N/A: Buttocks 05/19/2025 [id number] / / [id number] Interstim Implanted:Qty : 1 on 09/18/2023 by Arjun Prakash MD at [facility] Stimulator Implant N/A: Buttocks 01/14/2025 [id number] / [id number] / [id number] Insurance [employer] Care Teams Pizzamaker Relationship Specialty Start Date End Date Barrie Naranjo MD [address] [place] [address] PCP - General FAMILY PRACTICE 09/11/23
[2025-01-31 11:50] VITALS: BMI 26.6
--- NOTE | 2025-01-31 11:50 | P.SLEEP_ITS ---
Sleep Study Date of Study: 01/11/25 Ordering Provider: Leeann Feliz APRN Interpreting Physician: Janet Castaneda DO Sleep Study Type: Polysomnogram Height: 1.63 m Weight: 70.307 kg Body Mass Index: 26.6 Neck Circumference (inches): 13.5 Mccoll: 8 Reason for Sleep Study Previously diagnosed sleep apnea and prescribed CPAP. Not currently using CPAP. Sleep History The patient is a 79-year-old female that had a sleep study ordered by her primary care for evaluation of sleep apnea. The patient frequently awakens from sleep short of breath. She occasionally awakens at night with heartburn, belching or cough. She constantly snores loudly enough that others complain. She rarely has trouble sleeping when she has a cold. She rarely wakes up gasping for air throughout the night. She rarely has breathing problems at night observed by herself or others. She rarely sweats excessively at night. She frequently has heart palpitations or irregular heartbeats during the night. She frequently falls asleep during the day but never while driving. She occasionally experiences loss of muscle tone when extremely emotional. She frequently has trouble at school or work due to sleepiness. She rarely feels u nable to move while waking up or falling asleep. She denies feeling afraid of going to sleep. She rarely has nightmares. She occasionally remembers her dreams. She frequently has thoughts racing through her mind. She frequently feels sad, depressed and anxious. She rarely has muscular tension. She denies noticing parts of her body jerk. She denies kicking during the night. She occasionally has crawling and aching feelings in her legs and occasionally has leg pain during the night. She occasionally grinds her teeth during sleep but never awakens with morning jaw pain. She is frequently bothered by pain during the day and occasionally awakened by pain during the night. She occasionally wakes up feeling stiff in the morning. She rarely wakes up with sore or achy muscles. She frequently wakes up with pain in the neck, spine and other joints. She goes to bed at 8:00 p.m. on both weekdays and weekends. she wakes up 3-4 times throughout the night for unknown reasons. She wakes up at 6:00 a.m. on both weekdays and weekends. She typically gets 6-8 hours of sleep per night. She will stay in bed for 20 minutes after waking up in the morning. She currently lives alone. She denies consuming any caffeinated beverages within 2 hours of bedtime. She denies engaging in physical exercise before bedtime. She will watch television before falling asleep. She occasionally takes naps in the afternoon or the evening but they are not refreshing. She consumes 2 cups of caffeinated beverage per day. She quit smoking cigarettes 9 years ago. She denies alcohol and recreational drug use. FOR[facility]LY [facility] Past Medical History Medical History Restless leg syndrome Sleep apnea Lymphedema of both lower extremities Atrial fibrillation Hyperlipidemia Kidney stones Heart attack Skin cancer Moderate mitral regurgitation Gout CAD (coronary atherosclerotic disease) Atrophy of vagina Sacral pain Urinary incontinence Superior mesenteric artery atherosclerosis Pulmonary nodule Chronic SI joint pain TEDDY on CPAP (HFpEF) heart failure with preserved ejection fraction Prolonged QT interval PAF (paroxysmal atrial fibrillation) PHT (pulmonary hypertension) Ascending aortic aneurysm Varicose veins of both lower extremities with complications Depressive disorder Lumbar facet arthropathy Degeneration of lumbar intervertebral disc Degeneration of cervicothoracic intervertebral disc GERD (gastroesophageal reflux disease) Menopausal and postmenopausal disorder Osteoporosis Osteoarthritis Anxiety Mixed hyperlipidemia Surgical History Surgical History History of surgery on right wrist S/P hammer toe correction Family History Family History Mother Diabetes mellitus Hypertension Depression Heart disease Sibling Alcohol abuse Skin cancer Heart disease Cerebrovascular accident Asthma Social History Social History Social History: Pt moved from [place] to [place] 2021. Pt is , lives alone. Smoking status: Former smoker Tobacco type: cigarettes Alcohol intake: current Alcohol use details: occasionnally Substance use: never Substance use type: does not use Do You Feel Safe in your Home?: Yes Lack of Transportation: No Lack of Food: Never True Current Housing: I Have Housing Concerned About Future Housing: No Difficulty Paying Gas/Electric Bills: No Difficulty Paying for Meds: No Currently Unemployed: No Education: Trade/Vocational Certificate Difficulty w/ Childcare or Family Care: No Living arrangements: alone Occupation/Education: occupation Gender identity (if verbalized by the patient): Female Sexual Orientation (if Verbalized by the Patient): Straight or Heterosexual Agree to blood products: Yes Medications Home Medications ?Medication ?Instructions ?Recorded ?Confirmed ?Type meclizine 25 mg tablet 25 mg PO TID PRN motion sickness 03/05/23 01/24/25 Rx #30 tabs sertraline 100 mg tablet 100 mg PO DAILY #90 tabs 03/31/23 01/24/25 Rx ondansetron 4 mg disintegrating 4 mg PO Q6H PRN nausea and 11/11/23 01/24/25 Rx tablet vomiting #6 tabs aspirin 81 mg tablet,delayed 81 mg PO DAILY 05/24/24 01/24/25 History release (Adult Aspirin Regimen) apixaban 5 mg tablet (Eliquis) 5 mg PO BID #60 tabs 06/11/24 01/24/25 Rx evolocumab 140 mg/mL subcutaneous See Rx Instructions .Route 06/30/24 01/24/25 Rx pen injector (Repatha SureClick) .COMPLEX #12 mL metoprolol succinate 25 mg See Rx Instructions .Route 09/29/24 01/24/25 Rx tablet,extended release 24 hr .COMPLEX #90 tabs Sleep Procedure A full night polysomnogram using the CardioLogs multi-channel system recor ded the standard physiologic parameters including EEG, EOG, submentalis EMG, anterior tibialis EMG, EKG, body position, nasal and oral airflow using nasal pressure sensor and thermistor.? Respiratory parameters of chest and abdominal movements were recorded with Respiratory Inductance Plethysmography belts. Oxygen saturation was recorded by pulse oximetry. Video monitoring was also performed. Sleep stages, periodic limb movements, and EEG arousals were scored in 30 second epochs according to the criteria of the AASM Scoring Manual. The Apnea-Hypopnea Index was calculated using CMS guidelines for definition of hypopnea with 4% O2 desaturations while scoring respiratory events. Sleep Architecture The total recording time was 583.1 minutes.? The total sleep time was 446.0 minutes. Sleep latency was 36.1 minutes. REM latency was 198.0 minutes. Sleep efficiency was 76.5%. The patient had 28 awakenings for an awakening index of 3.8. Wake after sleep onset time was 101.0 minutes. The patient spent 51.0 minutes, 11.4% of total sleep time in Stage N1. The patient spent 301.5 minutes, 67.6% in Stage N2. The patient spent 46.5 minutes, 10.4% in Stage N3. The patient spent 47.0 minutes, 10.5% in Stage REM sleep. Respiratory Analysis The patient had 55 hypopneas and 1 obstructive apnea for an overall Apnea Hypopnea Index of 7.5. The REM Apnea Hypopnea Index was 10.2. The NREM Apnea Hypopnea Index was 7.4. The patient had a Central Apnea Hypopnea Index of 0. There was no evidence of Danny-Yates Respirations. Arousals There were 216 total arousals for an arousal index of 29.1. There were 137 spontaneous arousals for an index of 18.4. There were 19 arousals due to respiratory events for an index of 2.6. There were 42 arousals due to periodic limb movements for an index of 5.7.? There were 19 arousals due to isolated limb movements for an index of 2.6. Periodic Limb Movements The patient had 39 isolated limb movements with an index of 5.2. The patient had 106 periodic limb movements with an index of 14.3. Patient had a total of 145 limb movements with a total limb movement index of 19.5. Oximetry Data The patient had an average oxygen saturation of 93.5% in sleep with a minimum oxygen saturation of 85.0% and a maximum oxygen saturation of 98.0%. The patient had 59 oxygen desaturations that were 4% or greater resulting in an Oxygen Desaturation Index of 7.9.? The patient spent 2.3 minutes, 0.4% of total sleep time with an oxygen saturation below 88%. Snoring Profile Mild snoring was present intermittently throughout the study. Cardiac Profile The EKG showed normal sinus rhythm.?No arrhythmias or premature beats were seen. The patient had an average pulse rate of 66.4 bpm with a minimum pulse of rate of 53.0 bpm and a maximum pulse rate of 103.0 bpm.? EEG Profile No signs of seizure activity seen. Assessment and Plan Assessment and Plan (1) TEDDY (obstructive sleep apnea): Code(s): G47.33 - Obstructive sleep apnea (adult) (pediatric) Status: Acute Assessment and Plan: The patient had an overall AHI of 7.5 with desaturation down to 85%. This is consistent with mild sleep apnea. Due to the patient's atrial fibrillation, she qualifies for treatment. Due to the patient's history of non-compliance in the past, it would be best for her to restart CPAP in the sleep lab where the sleep technologists can troubleshoot any problems that may arise to help improve future CPAP compliance. I recommend that the patient have a CPAP titration study with the use of a hypnotic to ensure we obtain enough sleep data find an optimal pressure setting. Data The data obtained during this sleep study is adequate for interpretation. Certification This sleep study has been reviewed by a board certified sleep medicine physician.
== END 2025-01-12 07:44 | disposition home or self-care (01) ==
LOC: ANHCSM 07:43
PROVIDERS: PCP Nurse Practitioner Adult Health; Visit Provider Nurse Practitioner Adult Health
DX: G47.33 Obstructive sleep apnea (adult) (pediatric) (principal); Z99.89 Dependence on other enabling machines and devices
CPT/HCPCS: 95810

== ENCOUNTER 2025-02-15 11:28 | Outpatient (CLI) | payer MEDICARE, SELFPAY ==
--- OUTSIDE RECORDS SUMMARY | 2025-02-15 12:16 | XMS_ITS | Referral Summary ---
Author Organization [facility] [address] lto Address [address] [place] [address] Care Team Providers Care [employer] Architect Name Role Phone Barrie Naranjo MD Primary Care Provider [phone] Encounters Date Type Department Care Team Description 02/02/2025 11:15 AM CDT Office Visit [facility] Medical [facility] Cardiology [address] [place] [address] Augustin Alvarez MD PSVT (paroxysmal supraventricular tachycardia) (Primary Dx); Memory loss 12/29/2024 Orders Only [facility] Medical Group Vascular and Vein Surgery [address] [place] [address] [address] [place] [address] Reynaldo Whitaker MD 12/29/2024 9:00 AM CDT Office Visit [facility] Medical Group Vascular at [address] [place] [phone] Erik Whitaker MD Varicose veins of leg with pain, right (Primary Dx) 12/28/2024 Documentation [facility] Medical Group Vascular and Vein Surgery [facility] [place] [phone] Irma Green MA 12/27/2024 Documentation [facility] Vascular and Vein Surgery [facility] [place] [address] Irma Green MA 12/03/2024 6:28 PM DOORSHAKER - 12/04/2024 12:13 AM DOORSHAKER Emergency [facility] Emergency Department [address] [place] [address] James Harris MD Wala, Rakesh Aggarwal MD Head injury, initial encounter (Primary Dx); Fall, initial encounter Discharge Disposition: Discharge to home or self care 12/03/2024 1:18 PM DOORSHAKER - 12/03/2024 11:59 PM DOORSHAKER Hospital Encounter [facility] Emergency, Room R Discharge Disposition: Discharge to home or self care 12/03/2024 10:53 AM DOORSHAKER - 12/03/2024 11:59 PM DOORSHAKER Hospital Encounter [facility] 2 Vascular [address] [place] [address] Varicose veins of leg with pain, right Discharge Disposition: Discharge to home or self care 11/30/2024 Telephone [facility] Vascular and Vein Surgery [address] [place] [phone] Kallie Schwab, RN 11/29/2024 Orders Only [facility] Vascular at [address] [place] [address] Erik Whitaker MD 11/26/2024 Telephone [facility] Cardiology [address] [place] [address] Augustin Alvarez MD 11/26/2024 Telephone [facility] Vascular and Vein Surgery [facility] [place] [phone] Kallie Schwab, RN from Last 3 Months Allergies Active Allergy Reactions Criticality Noted Date Comments Ciprofloxacin Hallucinations,Vomiting Medium 2 Pregabalin Hallucinations,Vomiting Medium 03/08/2022 Medications apixaban (ELIQUIS) 2.5 mg tablet 1 tablet [...] tablet (100 mg total) by mouth nightly 06/11/20 24 Active ALPRAZolam (XANAX) 0.5 mg tablet Bring both tablets to [address] day of procedure. 2 tablet 11/29/19 25 Active Additional Information Patient not taking.Reported on 02/02/2025 alendronate (FOSAMAX) 70 mg tablet Take 1 tablet (70 mg total) by mouth once a week 11/11/19 23 Active Repatha SureClick 140 mg/mL pen injector Inject under the skin every 2 (two) weeks 01/21/20 25 Active ezetimibe (ZETIA) 10 mg tablet Take 1 tablet (10 mg total) by mouth daily Active traMADoL (ULTRAM) 50 mg tablet Take 1 tablet (50 mg total) by mouth every 6 (six) hours as needed 09/18/20 Active potassium chloride ER 10 mEq CR tablet Take 1 tablet/capsule (10 mEq total) by mouth daily Active metoprolol XL (TOPROL-XL) 25 mg extended release tabletIndications:P SVT (paroxysmal supraventricular tachycardia) Take 2 tablets (50 mg total) by mouth daily 180 tablet 1 02/03/20 25 026 Active metoprolol hoang-hydrochlorothiaz 100-12.5 mg tablet extended release 24 hr Take by mouth 025 Discontin ued(Alter nadira therapy) metoprolol XL (TOPROL-XL) 25 mg extended release tablet Take 1 tablet (25 mg total) by mouth daily 06/17/20 23 025 Discontin ued(Reord er) Active Problems Problem Noted Date Diagnosed Date Varicose veins of leg with pain, right Assessment & Plan (12/31/2024 7:28 AM CDT): [...] Date Smoking Tobacco: Former Cigarettes Q uit: 2012 Smokeless Tobacco: Never Tobacco Cessation:Counseling Given: Not [...] Sign Reading Time Taken Comments Blood Pressure 136/88 02/02/2025 11:49 AM CDT Pulse 69 02/02/2025 11:49 AM CDT Temperature 36.3 C (97.4 F) 12/03/2024 11:40 PM DOORSHAKER Respiratory Rate 14 12/03/2024 11:45 PM DOORSHAKER Oxygen Saturation 95% 02/02/2025 11:49 AM CDT Inhaled Oxygen Concentration - - Weight 70.3 kg (155 lb) 12/29/2024 9:21 AM CDT Height 162.6 cm (5' 4 ) 02/02/2025 11:49 AM CDT Body Mass Index 26.61 12/29/2024 9:21 AM CDT Plan of Treatment Not on file Procedures Procedure Name Priority Date/Time Associated Diagnosis Comments SLEEP STUDY Routine 02/02/2025 LIPID PANEL Routine 12/14/2024 XR HAND RIGHT 3 OR MORE VIEWS ED 12/03/2024 8:[address] LUMBAR SPINE WO CONTRAST ED 12/03/2024 7:[address] FACIAL BONES WO CONTRAST ED 12/03/2024 7:[address] CERVICAL SPINE WO CONTRAST ED 12/03/2024 7:[address] HEAD WO CONTRAST ED 12/03/2024 7 :42 PM DOORSHAKER EGFR STAT 12/03/2024 6:57 PM DOORSHAKER DIFFERENTIAL AUTO STAT 12/03/2024 6:5 7 PM DOORSHAKER CBC WITH AUTO DIFFERENTIAL STAT 12/03/2024 6:57 PM DOORSHAKER COMPREHENSIVE METABOLIC PANEL STAT 12/03/2024 6:57 PM DOORSHAKER ECG 12-LEAD STAT 12/03/2024 6:33 PM DOORSHAKER from Last 3 Months Results * Sleep Study (02/02/2025) Historical Provider SLEEP CENTER ORDERABLES F inal Result * Lipid panel (12/14/2024) SCRIBED Cholesterol, Total 199 l - h EXTERNAL LAB SCRIBED HDL 39 l - h EXTERNAL LAB SCRIBED LDL 97 l - h EXTERNAL LAB SCRIBED Triglycerides 195 l - h EXTERNAL LAB Blood 12/14/2024 Historical Provider LAB BLOOD ORDERABLES Ya l Result EXTERNAL LAB * XR Hand Right 3 or More Views (12/03/2024 8:10 PM DOORSHAKER) Anatomical Region Laterality Modality Upper Extremities, Hand Right Computed Radiography 12/03/2024 8:28 PM DOORSHAKER Narrative 12/03/2024 8:29 PM DOORSHAKER EXAM DESCRIPTION: XR HAND RIGHT 3 OR [...] Elsy Gilliam M.D. FT: FT Report ID: [id number] Reading Location: [id number] Procedure Note Elsy Gagnon MD - 12/03/2024 [...] Elsy Gilliam M.D. FT: FT Report ID: [id number] Reading Location: [id number] James Harris MD IMG XR PROCEDURES Final Resu lt * CT Lumbar Spine WO Contrast (12/03/2024 7:42 PM DOORSHAKER) Anatomical Region Laterality Modality Spine N/A Computed Tomogra phy 12/03/2024 7:55 PM DOORSHAKER Narrative 12/03/2024 7:59 PM DOORSHAKER EXAM DESCRIPTION: CT LUMBAR SPINE WO CONTRAST [...] Juaquin Dorantes M.D. KT: CLAUDETTE Report ID: [id number] Reading Location: [id number] Procedure Note Juaquin Dorantes MD - 12/03/2024 [...] Juaquin Dorantes M.D. KT: KT Report ID: [id number] Reading Location: [place] [address] James Harris MD IMG CT PROCEDURES Final Resu lt * CT Cervical Spine WO Contrast (12/03/2024 7:42 PM DOORSHAKER) Anatomical Region Laterality Modality Spine N/A Computed Tomogra phy 12/03/2024 7:53 PM DOORSHAKER Narrative 12/03/2024 8:15 PM DOORSHAKER EXAM DESCRIPTION: CT HEAD WO CONTRAST; CT [...] pronounced and severe at C5-C6 and C6-C7. Iouq-lo-ivcvdiev multilevel facet and uncovertebral joint osteoarthritis with tqnt-qr-zbacexmk multilevel osseous neural foraminal stenosis. No acute [...] Antonio Sandy M.D. AT: AT Report ID: [id number] Reading Location: [id number] Procedure Note Antonio Sandy MD - 12/03/2024 [...] pronounced and severe at C5-C6 and C6-C7. Vreo-dm-gkclxbuc multilevel facet and uncovertebral joint osteoarthritiswith saev-fu-vvpklclj multilevel osseous neural foraminal stenosis. No acute [...] Antonio Sandy M.D. AT: AT Report ID: [id number] Reading Location: [id number] James Harris MD IMG CT PROCEDURES Final Resu lt * CT Facial Bones WO Contrast (12/03/2024 7:42 PM DOORSHAKER) Anatomical Region Laterality Modality Head and Neck N/A Computed Tomogra phy 12/03/2024 7:53 PM DOORSHAKER Narrative 12/03/2024 8:15 PM DOORSHAKER EXAM DESCRIPTION: CT HEAD WO CONTRAST; CT [...] pronounced and severe at C5-C6 and C6-C7. Tosg-nv-axpqbzcf multilevel facet and uncovertebral joint osteoarthritis with azsk-na-seisrenq multilevel osseous neural foraminal stenosis. No acute [...] Antonio Sandy M.D. AT: AT Report ID: [id number] Reading Location: [id number] Procedure Note Antonio Sandy MD - 12/03/2024 [...] pronounced and severe at C5-C6 and C6-C7. Bjum-od-bdguyurf multilevel facet and uncovertebral joint osteoarthritiswith iopj-lu-cjphnjly multilevel osseous neural foraminal stenosis. No acute [...] Antonio Sandy M.D. AT: AT Report ID: [id number] Reading Location: [place] [address] James Harris MD IMG CT PROCEDURES Final Resu lt * CT Head WO Contrast (12/03/2024 7:42 PM DOORSHAKER) Anatomical Region Laterality Modality Head and Neck N/A Computed Tomogra phy 12/03/2024 7:53 PM DOORSHAKER Narrative 12/03/2024 8:15 PM DOORSHAKER EXAM DESCRIPTION: CT HEAD WO CONTRAST; CT [...] pronounced and severe at C5-C6 and C6-C7. Wobv-fx-phhxukaj multilevel facet and uncovertebral joint osteoarthritis with egcl-nh-mwnnxuar multilevel osseous neural foraminal stenosis. No acute [...] Antonio Sandy M.D. AT: AT Report ID: [id number] Reading Location: [id number] Procedure Note Antonio Sandy MD - 12/03/2024 [...] pronounced and severe at C5-C6 and C6-C7. Pljy-eu-thnbumsa multilevel facet and uncovertebral joint osteoarthritiswith tbtp-wc-qcxuwxux multilevel osseous neural foraminal stenosis. No acute [...] Antonio Sandy M.D. AT: AT Report ID: [id number] Reading Location: [id number] James Harris MD IMG CT PROCEDURES Final Resu lt * eGFR (12/03/2024 6:57 PM DOORSHAKER) eGFR 90 >=60 mL/min/1. 73 m2 Comment: [...] last reviewed 2021. Blood 12/03/2024 6:57 PM DOORSHAKER 12/03/2024 7:02 PM DOORSHAKER us James Harris MD LAB BLOOD ORDERABLES Final R esult [facility] ([place]) [address] [facility] [place] [address] * (ABNORMAL) Differential, auto (12/03/2024 6:57 PM DOORSHAKER) Neutrophil abs 10.0(H) 1.5 - 6.5 K/cumm [...] revised on 2018. Blood 12/03/2024 6:57 PM DOORSHAKER 12/03/2024 7:02 PM DOORSHAKER us James Harris MD LAB BLOOD ORDERABLES Final R esult [facility] ([place]) [address] [facility] [place] [address] * (ABNORMAL) CBC with auto differential (12/03/2024 6:57 PM DOORSHAKER) WBC 12.9(H) 3.8 - 9.9 K/cumm Hgb [...] RDW SD 42.8 35.7 - 48.1 fL [facility] NRBC abs 0.00 0.00 - 0.01 K/cumm [facility] ([place]) Blood 12/03/2024 6:57 PM DOORSHAKER 12/03/2024 7:02 PM DOORSHAKER us James Harris MD LAB BLOOD ORDERABLES Final R esult [facility] ([place]) [address] [facility] [facility] [place] [address] * Comprehensive metabolic panel (12/03/2024 6:57 PM DOORSHAKER) Sodium 137 135 - 145 mmol/L Potassium, pl 4.3 3.3 - 4.9 mmol/L [facility] ([place] Comment:Slightly Hemolyzed S pecimen. Results may be affected. Chloride 101 97 - 110 mmol/L [facility] ([place]) CO2 25 22 - 32 mmol/L [facility] ([place]) Anion gap 11 2 - 15 mmol/L [facility] ([place] BUN 20 6 - 25 mg/dL [facility] ([place]) Creatinine 0.66 0.60 - 1.10 mg/dL [facility] ([place]) Glucose 108 70 - 199 mg/dL [facility] ([place] Comment: Interpretive Data Fasting glucose [...] 2022. Calcium 9.5 8.5 - 10.3 mg/dL [facility] ([place]) Bilirubin, total 1.1 0.1 - 1.2 mg/dL [facility] ([place]) Protein, pl 7.6 6.5 - 8.5 g/dL [facility] ([place] Albumin 4.2 3.5 - 5.0 g/dL [facility] ([place]) Alk phos 60 40 - 130 Units/L [facility] ([place]) ALT 16 7 - 45 Units/L [facility] ([place]) Comment:Hemolysis present. R esults may be affected. AST 29 10 - 45 Units/L [facility] ([place]) Comment: Hemolysis present. Results may be affected. Slightly Hemolyzed Specimen Blood 12/03/2024 6:57 PM DOORSHAKER 12/03/2024 7:02 PM DOORSHAKER James Harris MD LAB BLOOD ORDERABLES Final R esult [facility] ([place]) [address] [facility] [place] [address] * ECG 12 lead (12/03/2024 6:33 PM DOORSHAKER) 12/03/2024 6:33 PM DOORSHAKER Narrative [facility] - 12/04/2024 8:24 AM DOORSHAKER Vent Rate: 52 bpm RR Interval: 1142 msec IN Interval: 197 msec QRS Duration: 107 msec QT Interval: 454 msec QTC Interval: 434 msec P-R-T [place]: 36 - -45 - 36 degrees IMPRESSION: [...] James Harris MD ECG ORDERABLES Final Result [facility] from Last 3 Months Insurance [facility] MEDICARE ADVANTAGE [facility] Address: [address] [address] [place] [address] [facility] Care Teams [employer] Architect Relationship Specialty Start Date End Date Barrie Naranjo MD PCP - General Family Practice 08/03/24
--- OUTSIDE RECORDS SUMMARY | 2025-02-15 12:16 | XMS_ITS | Encounter Summary ---
Author Organization [facility] Address Count includes the [facility] [place] [address] Care Team Providers Care Generator Technician Name Role Phone Barrie Naranjo MD Primary Care Provider [phone] Encounter Details Date Type Department Care Team (Late st Contact Info) Description 09/15/[address] [facility] [place] [id number] Molly Edgar MD [address] [facility] [place], [place] [id number] Social History Tobacco Use Types Packs/Day Years Used Date Smoking Tobacco: Former Cigarettes 0.5 20 2013 Smokeless Tobacco: Never Alcohol Use Standard Drinks/Week Comments Yes 0 (1 standard drink = 0.6 oz pur e alcohol) seldom 1 every 3 mo Comments No Sex and Gender Information Value Date Recorded Sex Assigned at Not on file Legal Sex Female 1:29 PM DISTRICT RANGER Gender Identity Not on file Sexual Orientation Not on file documented as of this encounter Functional Status * Calculated C-SSRS Risk Score (Lifetime/Recent) Answer Date of Assessment Author Status No Risk Indicated 09/18/2023 9:31 AM Ash Ramirez i, RN Active * Grady Suicide Severity Rating Scale (Screener/Recent Self-Report) Question Answer Date of Assessment Author Status 1. Wish to be (Past 1 Month) No 09/18/2023 9:31 AM Mikayla Ramirez RN Activ e 2. Non-Specific Active Suicidal Thoughts (Past 1 Month) No 09/18/2023 9:31 AM Mikayla Ramirez RN Activ e 6. Suicidal Behavior (Lifetime) No 09/18/2023 9:31 AM Mikayla Ramirez RN Activ e documented as of this encounter H&P Notes [...] History: Procedure Laterality Date CARDIAC CATHETERIZATION 2019 2 stents placed FRACTURE SURGERY Right wrist HC [...] revision and battery changes. Agrees to proceed. MOLLY EDGAR MD 09/15/2023 RICT RANGER documented in this encounter Plan of Treatment Not on file documented as of this encounter Visit Diagnoses Not on filedocumented in this encounter Care Teams Generator Technician Relationship Specialty Start Date End Date Barrie Naranjo MD [address] [place] [address] PCP - General FAMILY PRACTICE 09/11/23 documented as of this encounter
--- OUTSIDE RECORDS SUMMARY | 2025-02-15 12:17 | XMS_ITS | Clinical Summary ---
Author Organization [facility] Address [address] [place] [address] Care Team Providers Care Post Anesthesia Nurse Name Role Phone Barrie Naranjo MD Primary Care Provider [phone] Allergies Active Allergy Reactions Criticality Noted Date [...] on file Legal Sex Female 1:29 PM DECAL DECORATOR Gender Identity Not on file Sexual Orientation Not on file Last Filed Vital Signs Vital Sign Reading Time Taken Comments Blood Pressure 145/60 09/18/2023 12:45 PM DECAL DECORATOR Pulse 65 09/18/2023 12:45 PM DECAL DECORATOR Temperature 36.5 C (97.7 F) 09/18/2023 12:45 PM DECAL DECORATOR Respiratory Rate 16 09/18/2023 12:45 PM DECAL DECORATOR Oxygen Saturation 98% 09/18/2023 12:45 PM DECAL DECORATOR Inhaled Oxygen Concentration - - Weight 67.6 kg (149 lb 0.5 oz) 09/18/2023 8:45 A M DECAL DECORATOR Height 162.6 cm (5' 4 ) 09/18/2023 8:45 AM DECAL DECORATOR Body Mass Index 25.58 09/18/2023 8:45 AM DECAL DECORATOR Plan of Treatment Health Maintenance Due Date Last Done Comments Hepatitis C 1965 DTaP, Tdap and Td Vaccines ( 1 - Tdap) 1966 Pneumococcal Vaccine: 50+ Ye ars (1 of 1 - PCV) 1997 Zoster Vaccines (1 of 2) 1997 Annual Medicare Wellness Visit 02/14/2012 Dexa Scan (General) 02/14/2012 RSV Immunization or 60+ Years (1 [...] this topic Medical Devices Implanted Type Area Field Application Engineer Device Identifier Shelf Expiration Date Model / Serial / Lot Lead Scarum Implanted:Qty : 1 on 09/18/2023 by Arjun Prakash MD at [facility] Lead Implant N/A: Buttocks 05/19/2025 [id number] / / [id number] Interstim Implanted:Qty : 1 on 09/18/2023 by Arjun Prakash MD at [facility] Stimulator Implant N/A: Buttocks 01/14/2025 [id number] / [id number] / [id number] Insurance [employer] Care Teams Post Anesthesia Nurse Relationship Specialty Start Date End Date Barrie Naranjo MD [address] [place] [address] PCP - General FAMILY PRACTICE 09/11/23
--- OUTSIDE RECORDS SUMMARY | 2025-02-15 12:17 | XMS_ITS | Clinical Summary ---
Author Organization [address] lto Address [address] [address] Care Team Providers Care Maintenance Scheduler Name Role Phone Barrie Naranjo MD Primary Care Provider [phone] Allergies Active Allergy Reactions Criticality Noted Date [...] (25 mg total) by mouth daily 06/17/20 025 Discontin ued(Reord er) Active Problems Problem [...] Description 02/02/2025 11:15 AM CDT Office Visit [facility] Medical [facility] Cardiology [address], [place] [address] Augustin Alvarez MD PSVT (paroxysmal supraventricular tachycardia) (Primary Dx); Memory loss 12/29/2024 9:00 AM CDT Office Visit [facility] Vascular at [address] [place] [address] Erik Whitaker MD Varicose veins of leg with pain, right (Primary Dx) 12/29/2024 Orders Only [facility] Medical [facility] Vascular and Vein Surgery [address] [place] [address] [address] [place] [address] Reynaldo Whitaker MD 12/28/2024 Documentation [facility] Vascular and Vein Surgery [address] [place] [address] Irma Green MA 12/27/2024 Documentation [facility] Vascular and Vein Surgery [address] [place] [address] [address] [place] [address] Irma Green MA 12/03/2024 6:28 PM CATALOG LIBRARY ASSISTANT - 12/04/2024 12:13 AM CATALOG LIBRARY ASSISTANT Emergency [facility] Emergency Department [address] [place] [address] James Harris MD Wala, Rakesh Aggarwal MD Head injury, initial encounter (Primary Dx); Fall, initial encounter Discharge Disposition: Discharge to home or self care 12/03/2024 1:18 PM CATALOG LIBRARY ASSISTANT - 12/03/2024 11:59 PM CATALOG LIBRARY ASSISTANT Hospital Encounter [facility]ANCE BILLING Emergency, Room R Discharge Disposition: Discharge to home or self care 12/03/2024 10:53 AM CATALOG LIBRARY ASSISTANT - 12/03/2024 11:59 PM CATALOG LIBRARY ASSISTANT Hospital Encounter [facility] Medical Office Building [address] [place] [address] [address] [place] [address] Varicose veins of leg with pain, right Discharge Disposition: Discharge to home or self care 11/30/2024 Telephone [facility] Medical [facility] Vascular and Vein Surgery [address] [place] [address] [address] [place] [address] Kallie Schwab, RN 11/29/2024 Orders Only [facility] Group Vascular at [address] [place] [address] Erik Whitaker MD 11/26/2024 Telephone [facility] Cardiology [address] [place] [address] Augustin Alvarez MD 11/26/2024 Telephone [facility] Vascular and Vein Surgery [address] [place] [address] Kallie Schwab RN from Last 3 Months Surgical History [...] 36.3 C (97.4 F) 12/03/2024 11:40 PM CATALOG LIBRARY ASSISTANT Respiratory Rate 14 12/03/2024 11:45 PM CATALOG LIBRARY ASSISTANT Oxygen Saturation 95% 02/02/2025 11:49 AM CDT [...] 1997 Well Visit 65+ 02/14/2012 Covid-19 Vaccine ( season) 06/13/202408/2022 Influenza Vaccine (Season Ended) 2025 Procedures Procedure Name Priority Date/Time Associated Diagnosis Comments SLEEP STUDY Routine 02/02/2025 LIPID PANEL Routine 12/14/2024 XR HAND RIGHT 3 OR MORE VIEWS ED 12/03/2024 8:10 [address]RARY ASSISTANT CT LUMBAR SPINE WO CONTRAST ED 12/03/2024 7:[address]RARY ASSISTANT CT FACIAL BONES WO CONTRAST ED 12/03/2024 7:42 PM CAT[address]OG LIBRARY ASSISTANT CT CERVICAL SPINE WO CONTRAST ED 12/03/2024 7:42 PM CATALOG LIBRARY ASSISTANT CT HEAD WO CONTRAST ED 12/03/2024 7 :42 PM CATALOG LIBRARY ASSISTANT EGFR STAT 12/03/2024 6:57 PM CATALOG LIBRARY ASSISTANT DIFFERENTIAL AUTO STAT 12/03/2024 6:5 7 PM CATALOG LIBRARY ASSISTANT CBC WITH AUTO DIFFERENTIAL STAT 12/03/2024 6:57 PM CATALOG LIBRARY ASSISTANT COMPREHENSIVE METABOLIC PANEL STAT 12/03/2024 6:57 PM CATALOG LIBRARY ASSISTANT ECG 12-LEAD STAT 12/03/2024 6:33 PM CATALOG LIBRARY ASSISTANT from Last 3 Months Results * Sleep Study (02/02/2025) us Historical Provider SLEEP CENTER ORDERABLES F inal Result * Lipid panel (12/14/2024) SCRIBED Cholesterol, Total 199 l - h EXTERNAL LAB SCRIBED HDL 39 l - h EXTERNAL LAB SCRIBED LDL 97 l - h EXTERNAL LAB SCRIBED Triglycerides 195 l - h EXTERNAL LAB Blood 12/14/2024 us Historical Provider LAB BLOOD ORDERABLES Ya joshua Result EXTERNAL LAB * XR Hand Right 3 or More Views (12/03/2024 8:10 PM CATALOG LIBRARY ASSISTANT) Anatomical Region Laterality Modality Upper Extremities, Hand Right Computed Radiography 12/03/2024 8:28 PM CATALOG LIBRARY ASSISTANT Narrative 12/03/2024 8:29 PM CATALOG LIBRARY ASSISTANT EXAM DESCRIPTION: XR HAND RIGHT 3 OR [...] Elsy Gilliam M.D. FT: FT Report ID: [id number] Reading Location: [id number] Procedure Note Elsy Gagnon MD - 12/03/2024 [...] Elsy Gilliam M.D. FT: FT Report ID: [id number] Reading Location: [place] [address] James Harris MD IMG XR PROCEDURES Final Resu lt * CT Lumbar Spine WO Contrast (12/03/2024 7:42 PM CATALOG LIBRARY ASSISTANT) Anatomical Region Laterality Modality Spine N/A Computed Tomogra phy 12/03/2024 7:55 PM CATALOG LIBRARY ASSISTANT Narrative 12/03/2024 7:59 PM CATALOG LIBRARY ASSISTANT EXAM DESCRIPTION: CT LUMBAR SPINE WO CONTRAST [...] Juaquin Dorantes M.D. KT: CLAUDETTE Report ID: [id number] Reading Location: [id number] Procedure Note Juaquin Dorantes MD - 12/03/2024 [...] Juaquin Dorantes M.D. KT: CLAUDETTE Report ID: [id number] Reading Location: [id number] us James Harris MD IMG CT PROCEDURES Final Resu lt * CT Cervical Spine WO Contrast (12/03/2024 7:42 PM CATALOG LIBRARY ASSISTANT) Anatomical Region Laterality Modality Spine N/A Computed Tomogra phy 12/03/2024 7:53 PM CATALOG LIBRARY ASSISTANT Narrative 12/03/2024 8:15 PM CATALOG LIBRARY ASSISTANT EXAM DESCRIPTION: CT HEAD WO CONTRAST; CT [...] pronounced and severe at C5-C6 and C6-C7. Sjmo-ei-lipnzymt multilevel facet and uncovertebral joint osteoarthritis with hoem-tf-tofpnbrw multilevel osseous neural foraminal stenosis. No acute [...] Antonio Sandy M.D. AT: AT Report ID: [id number] Reading Location: [id number] Procedure Note Antonio Sandy MD - 12/03/2024 [...] pronounced and severe at C5-C6 and C6-C7. Ikmj-gl-nvhblxqk multilevel facet and uncovertebral joint osteoarthritiswith ykfh-jx-jqchrdgw multilevel osseous neural foraminal stenosis. No acute [...] Antonio Sandy M.D. AT: AT Report ID: [id number] Reading Location: [id number] us James Harris MD IMG CT PROCEDURES Final Resu lt * CT Facial Bones WO Contrast (12/03/2024 7:42 PM CATALOG LIBRARY ASSISTANT) Anatomical Region Laterality Modality Head and Neck N/A Computed Tomogra phy 12/03/2024 7:53 PM CATALOG LIBRARY ASSISTANT Narrative 12/03/2024 8:15 PM CATALOG LIBRARY ASSISTANT EXAM DESCRIPTION: CT HEAD WO CONTRAST; CT [...] pronounced and severe at C5-C6 and C6-C7. Bytp-yw-sjjwjspk multilevel facet and uncovertebral joint osteoarthritis with hbgi-eb-lhlmvptu multilevel osseous neural foraminal stenosis. No acute [...] Antonio Sandy M.D. AT: AT Report ID: [id number] Reading Location: [id number] Procedure Note Antonio Sandy MD - 12/03/2024 [...] pronounced and severe at C5-C6 and C6-C7. Gequ-yp-roysbdvj multilevel facet and uncovertebral joint osteoarthritiswith qqzi-dm-eqzbehrl multilevel osseous neural foraminal stenosis. No acute [...] Antonio Sandy M.D. AT: AT Report ID: [id number] Reading Location: [id number] us James E. Harris MD IMG CT PROCEDURES Final Resu lt * CT Head WO Contrast (12/03/2024 7:42 PM CATALOG LIBRARY ASSISTANT) Anatomical Region Laterality Modality Head and Neck N/A Computed Tomogra phy 12/03/2024 7:53 PM CATALOG LIBRARY ASSISTANT Narrative 12/03/2024 8:15 PM CATALOG LIBRARY ASSISTANT EXAM DESCRIPTION: CT HEAD WO CONTRAST; CT [...] pronounced and severe at C5-C6 and C6-C7. Iwww-fn-ywxgtsgg multilevel facet and uncovertebral joint osteoarthritis with nwln-hw-ntifmhou multilevel osseous neural foraminal stenosis. No acute [...] Antonio Sandy M.D. AT: AT Report ID: [id number] Reading Location: [id number] Procedure Note Antonio Sandy MD - 12/03/2024 [...] pronounced and severe at C5-C6 and C6-C7. Dboj-wa-ngvwqvhs multilevel facet and uncovertebral joint osteoarthritiswith zoea-ug-pmavzsry multilevel osseous neural foraminal stenosis. No acute [...] Antonio Sandy M.D. AT: AT Report ID: [id number] Reading Location: [id number] James Harris MD IMG CT PROCEDURES Final Resu lt * eGFR (12/03/2024 6:57 PM CATALOG LIBRARY ASSISTANT) eGFR 90 >=60 mL/min/1. 73 m2 Comment: [...] last reviewed 2021. Blood 12/03/2024 6:57 PM CATALOG LIBRARY ASSISTANT 12/03/2024 7:02 PM CATALOG LIBRARY ASSISTANT James Harris MD LAB BLOOD ORDERABLES Final R esult [facility] [address] [place] [address] * (ABNORMAL) Differential, auto (12/03/2024 6:57 PM CATALOG LIBRARY ASSISTANT) Neutrophil abs 10.0(H) 1.5 - 6.5 K/cumm [...] revised on 2018. Blood 12/03/2024 6:57 PM CATALOG LIBRARY ASSISTANT 12/03/2024 7:02 PM CATALOG LIBRARY ASSISTANT James Harris MD LAB BLOOD ORDERABLES Final R esult [facility] ([place] [address] [place] [address] * (ABNORMAL) CBC with auto differential (12/03/2024 6:57 PM CATALOG LIBRARY ASSISTANT) WBC 12.9(H) 3.8 - 9.9 K/cumm Hgb [...] RDW SD 42.8 35.7 - 48.1 fL [facility] NRBC abs 0.00 0.00 - 0.01 K/cumm [facility] ([place]) Blood 12/03/2024 6:57 PM CATALOG LIBRARY ASSISTANT 12/03/2024 7:02 PM CATALOG LIBRARY ASSISTANT us James Harris MD LAB BLOOD ORDERABLES Final R esult [facility] ([place] [address] [facility] [address] Department [place] [address] * Comprehensive metabolic panel (12/03/2024 6:57 PM CATALOG LIBRARY ASSISTANT) Sodium 137 135 - 145 mmol/L Potassium, [...] Bilirubin, total 1.1 0.1 - 1.2 mg/dL [facility] ([place] Protein, pl 7.6 6.5 - [...] Slightly Hemolyzed Specimen Blood 12/03/2024 6:57 PM CATALOG LIBRARY ASSISTANT 12/03/2024 7:02 PM CATALOG LIBRARY ASSISTANT us James Harris MD LAB BLOOD ORDERABLES Final R esult [facility]TON[facility] ([place]) [address] Department of Laboratories [place], [place] [id number] * ECG 12 lead (12/03/2024 6:33 PM CATALOG LIBRARY ASSISTANT) 12/03/2024 6:33 PM CATALOG LIBRARY ASSISTANT Narrative [facility] - 12/04/2024 8:24 AM CATALOG LIBRARY ASSISTANT Vent Rate: 52 bpm RR Interval: 1142 msec FL Interval: 197 msec QRS Duration: 107 msec QT Interval: 454 msec QTC Interval: 434 msec P-R-T [place]: 36 - -45 - 36 degrees IMPRESSION: [...] James Harris MD ECG ORDERABLES Final Result [facility] from Last 3 Months Insurance [facility] UHC MEDICARE ADVANTAGE [facility] Care Teams Maintenance Scheduler Relationship Specialty Start Date End Date Barrie Naranjo MD PCP - General Family Practice 08/03/24
--- NOTE | 2025-02-20 17:04 | WPDSLEEPSTUD ---
Sleep Study Date of Study: 02/15/25 Ordering Provider: Leeann Feliz APRN Interpreting Physician: Ginny Soto MD Sleep Study Type: CPAP Titration Height: 1.63 m Weight: 70.307 kg Body Mass Index: 26.6 Neck Circumference (inches): 13.5 [place]: 8 Reason for Sleep Study * 01/11/2025 PSG with apnea hypopnea index 7.5, desaturation to 85%; she returns for CPAP titration She has atrial tachycardia. Sleep History This history was obtained at the time of her her January 11, 2025 polysomnogram. Suzie Vaughan is a 80-year-old female with mild obstructive sleep apnea diagnosed on January 11. She presents now for CPAP titration. She was referred by her supervisor die casting due to atrial tachycardia and concerns regarding frequently awakenings from sleep feeling short of breath. Her medical diagnoses include RLS, lymphedema, a-fib, CAD with history of an IL, pulmonary hypertension, depression, GERD, and anxiety. She occasionally awakens at night with heartburn, belching or coughing. She constantly snores loudly enough that others complain. She rarely has trouble sleeping when she has a cold. She rarely wakes up gasping for air during the night. She rarely has breathing problems at night observed others. She rarely sweats excessively at night. She frequently has heart palpitations or irregular heartbeats during the night. She frequently falls asleep during the day but never while driving. She occasionally experiences loss of muscle tone when extremely emotional. She frequently has trouble during the daytime due to sleepiness. She rarely feels unable to move while waking up or falling asleep. She is nt afraid to go to sleep. She rarely has nightmares. She occasionally remembers her dreams. She frequently has thoughts racing through her mind. She frequently feels sad, depressed, or anxious. She rarely has muscular tension. She denies noticing parts of her body jerk. She denies kicking during the night. She occasionally has crawling and aching feelings in her legs and occasionally has leg pain during the night. She occasionally grinds her teeth during sleep but never awakens with morning jaw pain. She is frequently bothered by pain during the day and occasionally awakened by pain during the night. She occasionally wakes up feeling stiff in the morning. She rarely wakes up with sore or achy muscles. She frequently wakes up with pain in the neck, spine and other joints. Normal bedtime is 8:00 p.m, waking 3-4 times during the night for no specific reasons. Normal wake time is 6:00 a.m., keeping the same schedule on weekends. She typically gets 6-8 hours of sleep per night. She lives alone. She occasionally takes naps in the afternoon or the evening however a short nap lasting 10-15 minutes is not refreshing. Habits: Tobacco : quit cigarettes 9 years ago Caffeine : 2 cups per day Alcohol : none Recreational substances : none [facility] Past Medical History Medical History Restless leg syndrome Sleep apnea Lymphedema of both lower extremities Atrial fibrillation Hyperlipidemia Kidney stones Heart attack Skin cancer Moderate mitral regurgitation Gout CAD (coronary atherosclerotic disease) Atrophy of vagina Sacral pain Urinary incontinence Superior mesenteric artery atherosclerosis Pulmonary nodule Chronic SI joint pain TEDDY on CPAP (HFpEF) heart failure with preserved ejection fraction Prolonged QT interval PAF (paroxysmal atrial fibrillation) PHT (pulmonary hypertension) Ascending aortic aneurysm Varicose veins of both lower extremities with complications Depressive disorder Lumbar facet arthropathy Degeneration of lumbar intervertebral disc Degeneration of cervicothoracic intervertebral disc GERD (gastroesophageal reflux disease) Menopausal and postmenopausal disorder Osteoporosis Osteoarthritis Anxiety Mixed hyperlipidemia Surgical History Surgical History History of surgery on right wrist S/P hammer toe correction Family History Family History Mother Diabetes mellitus Hypertension Depression Heart disease Sibling Alcohol abuse Skin cancer Heart disease Cerebrovascular accident Asthma Social History Social History Social History: Pt moved from [place] to [place] 2021. Pt is , lives alone. Smoking status: Former smoker Tobacco type: cigarettes Alcohol intake: current Alcohol use details: occasionnally Substance use: never Substance use type: does not use Do You Feel Safe in your Home?: Yes Lack of Transportation: No Lack of Food: Never True Current Housing: I Have Housing Concerned About Future Housing: No Difficulty Paying Gas/Electric Bills: No Difficulty Paying for Meds: No Currently Unemployed: No Education: Trade/Vocational Certificate Difficulty w/ Childcare or Family Care: No Living arrangements: alone Occupation/Education: occupation Gender identity (if verbalized by the patient): Female Sexual Orientation (if Verbalized by the Patient): Straight or Heterosexual Agree to blood products: Yes Medications Home Medications ?Medication ?Instructions ?Recorded ?Confirmed ?Type sertraline 100 mg tablet 100 mg PO DAILY #90 tabs 03/31/23 01/24/25 Rx ondansetron 4 mg disintegrating 4 mg PO Q6H PRN nausea and 11/11/23 01/24/25 Rx tablet vomiting #6 tabs aspirin 81 mg tablet,delayed 81 mg PO DAILY 05/24/24 01/24/25 History release (Adult Aspirin Regimen) apixaban 5 mg tablet (Eliquis) 5 mg PO BID #60 tabs 06/11/24 01/24/25 Rx evolocumab 140 mg/mL subcutaneous See Rx Instructions .Route 06/30/24 01/24/25 Rx pen injector (Repatha SureClick) .COMPLEX #12 mL metoprolol succinate 25 mg See Rx Instructions .Route 09/29/24 01/24/25 Rx tablet,extended release 24 hr .COMPLEX #90 tabs meclizine 25 mg tablet 25 mg PO TID PRN motion sickness 02/14/25 Rx #30 tabs zolpidem 5 mg tablet (Ambien) 5 mg PO QHS PRN prior to sleep 02/15/25 Rx study #1 tablet Sleep Procedure A full CPAP polysomnogram using the [employer] multi-channel system recorded the standard physiologic parameters including EEG, EOG, submentalis EMG, anterior tibialis EMG, EKG, body position, nasal and oral airflow using nasal pressure sensor and thermistor. Respiratory parameters of chest and abdominal movements were recorded with Respiratory Inductance Plethysmography belts. Oxygen saturation was recorded by pulse oximetry. Video monitoring was also performed. Sleep stages, periodic limb movements, and EEG arousals were scored in 30 second epochs according to the criteria of the AASM Scoring Manual. The Apnea-Hypopnea Index was calculated using CMS guidelines for definition of hypopnea while scoring respiratory events. The patient self-administered Ambien at the start of the study. The patient was started on CPAP using a small ResMed F30i FFM, initial pressure was CPAP 5 titrated to 7 cm, 9 cm, 11 cm and 13 cm. At 13 cm, the patient spent 136.5 minutes in bed, 14.5 minutes awake, 122 minutes in non-REM, no time in REM. The sleep efficiency was 89.4%. The residual apnea-hypopnea index was 2.5 and the lowest saturation was 92%. The patient slept in the supine position and the left lateral position. Supine REM occurred at CPAP 11 cm. Sleep Architecture The total recording time was 532.1 minutes. The total sleep time was 442.5 minutes. Sleep latency was 17.1 minutes. REM latency was 330.5 minutes. Sleep efficiency was 83.2%. The patient had 34 awakenings for an awakening index of 4.6. Wake after Sleep Onset time was 72.5 minutes. The patient spent 108.5 minutes, 24.5% of total sleep time in Stage N1. The patient spent 296.0 minutes, 66.9% in Stage N2. The patient spent 2.5 minutes, 0.6% in Stage N3. The patient spent 35.5 minutes, 8.0% in Stage REM. Respiratory Analysis The patient had 64 hypopneas, no obstructive apneas, no mixed apneas, and no central apneas for an overall Apnea Hypopnea Index of 8.7 events per hour. The REM Apnea Hypopnea Index was 1.7. The NREM Apnea Hypopnea Index was 9.3. The patient had a Central Apnea Hypopnea Index of 0. There were no Respiratory Effort Related Arousals. The Respiratory Disturbance Index is 11.5 events per hour. There was no evidence of Danny-Yates Respirations. Arousals There were 247 total arousals for an arousal index of 33.5. There were 123 spontaneous arousals for an index of 16.7. There were 49 arousals due to respiratory events for an index of 6.6. There were 57 arousals due to periodic limb movements for an index of 7.7. There were 18 arousals due to isolated limb movements for an index of 2.4. Periodic Limb Movements The patient had 41 isolated limb movements with an index of 5.6. The patient had 98 periodic limb movements with index of 13.3. Patient had a total of 139 limb movements with a total limb movement index of 18.8. Oximetry Data The patient had an average oxygen saturation of 94.8% in sleep with a minimum oxygen saturation of 84.0% and a maximum oxygen saturation of 99.0%. The patient had 65 oxygen desaturations that were 4% or greater resulting in an Oxygen Desaturation Index of 8.8. The patient spent 1.8 minutes, 0.4% of total sleep time with an oxygen saturation below 88%. Snoring Profile During titration, snoring was no present. Cardiac Profile The EKG showed normal sinus rhythm. The patient had an average pulse rate of 63.2 bpm with a minimum pulse rate of 55 bpm and a maximum pulse rate of 81 bpm. No arrhythmias noted. EEG Profile EEG was unremarkable, no evidence of seizures. Assessment and Plan Assessment and Plan (1) TEDDY (obstructive sleep apnea): Code(s): G47.33 - Obstructive sleep apnea (adult) (pediatric) Status: Acute Assessment and Plan: This full night CPAP titration on 02/15/2025 shows an excellent study with an optimal pressure CPAP 13 cm using a small ResMed F30I fullface mask with heated humidity. At 13 cm the patient spent 136.5 minutes in bed, 14.5 minutes awake, 122 minutes in non-REM, no time in REM. The sleep efficiency was 89.4%. The residual apnea-hypopnea index was 2.5 and the lowest saturation was 92%. The patient slept in the supine position and the left lateral position. The patient should be prescribed this ResMed equipment as well as tubing, filters and reservoir. This should be used with all episodes of sleep. Compliance should be reviewed within 31-90 days of starting therapy for usage greater than 4 hours per night greater than 70% of the nights. The patient should be asked about symptoms such as excessive daytime sleepiness, quality of sleep, decreased nocturia, increased mental functioning such as memory, mood, and concentration. Data The data obtained during this sleep study is adequate for interpretation. Certification This sleep study has been reviewed by a board certified sleep medicine physician.
[2025-02-21 17:25] VITALS: BMI 26.6
== END 2025-02-16 06:51 | disposition home or self-care (01) ==
PROVIDERS: PCP Nurse Practitioner Adult Health; Visit Provider Nurse Practitioner Adult Health
DX: G47.33 Obstructive sleep apnea (adult) (pediatric) (principal)
CPT/HCPCS: 95811